=== PATIENT | female | born 1985 | race Caucasian/White ===

== ENCOUNTER 2016-12-05 14:41 | Emergency (ER) | payer OTHER ==
[~2016-12-05] VITALS: Ht 161.9 cm; Wt 145.1 kg
[~2016-12-05 14:41] MED LIST: AC500T PO; ANXIETY MED; BUPR150T9 PO; CEFU250T PO; CIPR500T4 PO; HC A30CR RC; HYDR115S2 PO; LABE300T PO; LORA0.5T PO; MECL25TA56 PO; PEDI1TAB35 PO
--- OUTSIDE RECORDS SUMMARY | 2016-12-05 14:48 | XMS REPORT | Continuity of Care Document ---
Author Author Formerly [facility] Address Unknown Phone Unavailable Allergies Active Description Code Type Severity Reaction Onset Reported/Identified Relationship to Patient Clinical Status Yes Diflucan Drug Allergy 12/05/2011 Yes Diflucan Drug Allergy N/A N/A 12/05/2011 Yes fluconazole [id number] Drug Allergy Unknown HIVES 12/14/2015 Medications Problems Date Dx Coded Attending Type Code Diagnosis Diagnosed By 11/02/2011 ZOË LIGHT DO 296.32 MO DEPRESSIVE RECURRENT MODERATE 11/02/2011 ZOË LIGHT DO 309.81 AN PTSD 11/02/2011 ZOË LIGHT DO 296.32 MO DEPRESSIVE RECURRENT MODERATE 11/02/2011 ZOË LIGHT DO 309.81 AN PTSD 11/02/2011 BEN CAROLINA APRNIDI A 296.32 MO DEPRESSIVE RECURRENT MODERATE 11/02/2011 CAITY LOVETT GRACIELA A 309.81 AN PTSD 11/02/2011 CHETAN FREEMAN APRNNDA S 296.32 MO DEPRESSIVE RECURRENT MODERATE 11/02/2011 PETE LOVETT THELMA S 309.81 AN PTSD 11/02/2011 CHETAN FREEMAN APRNNDA S 296.32 MO DEPRESSIVE RECURRENT MODERATE 11/02/2011 PETE LOVETT THELMA S 309.81 AN PTSD 11/02/2011 CAITY LOVETT GRACIELA A 296.32 MO DEPRESSIVE RECURRENT MODERATE 11/02/2011 CAITY LOVETT GRACIELA A 309.81 AN PTSD 11/02/2011 WHITE STANLEY SANCHEZ 296.32 MO DEPRESSIVE RECURRENT MODERATE 11/02/2011 STANLEY BIRD DDS 309.81 AN PTSD 11/02/2011 BRIAN GOMEZ MD 296.32 MO DEPRESSIVE RECURRENT MODERATE 11/02/2011 BRIAN GOMEZ MD 309.81 AN PTSD 11/02/2011 ERLINDA ALTAMIRANO PHD 296.32 MO DEPRESSIVE RECURRENT MODERATE 11/02/2011 ERLINDA ALTAMIRANO PHD 309.81 AN PTSD 11/02/2011 DK HOFF APRN 296.32 MO DEPRESSIVE RECURRENT MODERATE 11/02/2011 DK HOFF APRN 309.81 AN PTSD 11/02/2011 ERLINDA ALTAMIRANO PHD 296.32 MO DEPRESSIVE RECURRENT MODERATE 11/02/2011 ERLINDA ALTAMIRANO PHD 309.81 AN PTSD 11/02/2011 THELMA FREEMAN APRN S 296.32 MO DEPRESSIVE RECURRENT MODERATE 11/02/2011 ZEFERINO FREEMAN APRNA S 309.81 AN PTSD 12/05/2011 ZOË LIGHT DO K 111.0 PITYRIASIS VERSICOLOR 12/05/2011 MARIA DEL ROSARIO LIGHT DOA K 111.0 PITYRIASIS VERSICOLOR 12/05/2011 GRACIELA CAROLINA APRN A 111.0 PITYRIASIS VERSICOLOR 12/05/2011 ZEFERINO FREEMAN APRNA S 111.0 PITYRIASIS VERSICOLOR 12/05/2011 ZEFERINO FREEMAN APRNA S 111.0 PITYRIASIS VERSICOLOR 12/05/2011 GRACIELA CAROLINA APRN A 111.0 PITYRIASIS VERSICOLOR 12/05/2011 PELON HERNANDEZS, STANLEY Lopez 111.0 PITYRIASIS VERSICOLOR 12/05/2011 PATRICIA JACOBSON, BRIAN 111.0 PITYRIASIS VERSICOLOR 12/05/2011 ADARSH PHD, ERLINDA Jackson 111.0 PITYRIASIS VERSICOLOR 12/05/2011 DK HOFF APRN 111.0 PITYRIASIS VERSICOLOR 12/05/2011 ADARSH MASCORRO, ERLINDA Jackson 111.0 PITYRIASIS VERSICOLOR 12/05/2011 THELMA FREEMAN APRN S 111.0 PITYRIASIS VERSICOLOR 01/05/2012 MARIA DEL ROSARIO LIGHT DOA K 380.4 IMPACTED CERUMEN 01/05/2012 MARIA DEL ROSARIO LIGHT DOA K 380.4 IMPACTED CERUMEN 01/05/2012 GRACIELA CAROLINA APRN A 380.4 IMPACTED CERUMEN 01/05/2012 ZEFERINO FREEMAN APRNA S 380.4 IMPACTED CERUMEN 01/05/2012 THELMA FREEMAN APRN S 380.4 IMPACTED CERUMEN 01/05/2012 GRACIELA CAROLINA APRN A 380.4 IMPACTED CERUMEN 01/05/2012 STANLEY BIRD DDS 380.4 IMPACTED CERUMEN 01/05/2012 BRIAN GOMEZ MD 380.4 IMPACTED CERUMEN 01/05/2012 ERLINDA ALTAMIRANO PHD 380.4 IMPACTED CERUMEN 01/05/2012 DK HOFF APRN 380.4 IMPACTED CERUMEN 01/05/2012 ERLINDA ALTAMIRANO PHD 380.4 IMPACTED CERUMEN 01/05/2012 PETE LOVETT, THELMA S 380.4 IMPACTED CERUMEN 01/20/2012 Ot 300.00 01/20/2012 Ot 368.9 02/08/2012 LIGHT DO, ZOË K 381.10 OTITIS MEDIA CHRONIC SEROUS 02/08/2012 LIGHT DO ZOË K 729.5 PAIN IN LIMB 02/08/2012 LIGHT DO, ZOË K 381.10 OTITIS MEDIA CHRONIC SEROUS 02/08/2012 LIGHT DO, ZOË K 729.5 PAIN IN LIMB 02/08/2012 CAITY LOVETT GRACIELA A 381.10 OTITIS MEDIA CHRONIC SEROUS 02/08/2012 CAITY LOVETT GRACIELA A 729.5 PAIN IN LIMB 02/08/2012 PETE LOVETT, THELMA S 381.10 OTITIS MEDIA CHRONIC SEROUS 02/08/2012 PETE LOVETT THELMA S 729.5 PAIN IN LIMB 02/08/2012 PETE LOVETT THELMA S 381.10 OTITIS MEDIA CHRONIC SEROUS 02/08/2012 PETE LOVETT THELMA S 729.5 PAIN IN LIMB 02/08/2012 CAITY LOVETT GRACIELA A 381.10 OTITIS MEDIA CHRONIC SEROUS 02/08/2012 CAITYBc LOVETT GRACIELA A 729.5 PAIN IN LIMB 02/08/2012 STANLEY BIRD DDS 381.10 OTITIS MEDIA CHRONIC SEROUS 02/08/2012 STANLEY BIRD DDS 729.5 PAIN IN LIMB 02/08/2012 BRIAN GOMEZ MD 381.10 OTITIS MEDIA CHRONIC SEROUS 02/08/2012 BRIAN GOMEZ MD 729.5 PAIN IN LIMB 02/08/2012 ERLINDA ALTAMIRANO PHD 381.10 OTITIS MEDIA CHRONIC SEROUS 02/08/2012 ERLINDA ALTAMIRANO PHD 729.5 PAIN IN LIMB 02/08/2012 DK HOFF APRN 381.10 OTITIS MEDIA CHRONIC SEROUS 02/08/2012 DK HOFF APRN 729.5 PAIN IN LIMB 02/08/2012 ADARSH MASCORRO, ERLINDA Jackson 381.10 OTITIS MEDIA CHRONIC SEROUS 02/08/2012 ADARSH MASCORRO, ERLINDA Jackson 729.5 PAIN IN LIMB 02/08/2012 CHETAN FREEMAN APRNNDA S 381.10 OTITIS MEDIA CHRONIC SEROUS 02/08/2012 CHETAN FREEMAN APRNNDA S 729.5 PAIN IN LIMB 04/24/2012 MARIA DEL ROSARIO LIGHT DOA K 723.1 CERVICALGIA 04/24/2012 LIGHT DO ZOË K 723.1 CERVICALGIA 04/24/2012 BEN CAROLINA APRNIDI A 723.1 CERVICALGIA 04/24/2012 CHETAN FREEMAN APRNNDA S 723.1 CERVICALGIA 04/24/2012 CHETAN FREEMAN APRNNDA S 723.1 CERVICALGIA 04/24/2012 GRACIELA CAROLINA APRN A 723.1 CERVICALGIA 04/24/2012 PELON SANCHEZ, STANLEY Lopez 723.1 CERVICALGIA 04/24/2012 BRIAN GOMEZ MD 723.1 CERVICALGIA 04/24/2012 ADARSH MASCORRO, ERLINDA Jackson 723.1 CERVICALGIA 04/24/2012 DK HOFF APRN 723.1 CERVICALGIA 04/24/2012 ADARSH MASCORRO, ERLINDA Jackson 723.1 CERVICALGIA 04/24/2012 CHETAN FREEMAN APRNNDA S 723.1 CERVICALGIA 10/01/2012 MARIA DEL ROSARIO LIGHT DOA K 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 MASTOPATHY 10/01/2012 KULDEEP CHINCHILLA ZOË K V76.12 MAMMOGRAM SCREENING 10/01/2012 LIGHT DO ZOË K 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 MASTOPATHY 10/01/2012 LIGHT DO ZOË K V76.12 MAMMOGRAM SCREENING 10/01/2012 BEN CAROL[place] APRNIDI A 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 MASTOPATHY 10/01/2012 CAITY LOVETT GRACIELA A V76.12 MAMMOGRAM SCREENING 10/01/2012 CHETAN FREEMAN APRNNDA S 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 MASTOPATHY 10/01/2012 CHETAN FREEMAN APRNNDA S V76.12 MAMMOGRAM SCREENING 10/01/2012 CHETAN FREEMAN APRNNDA S 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 MASTOPATHY 10/01/2012 PETE LOVETT, THELMA S V76.12 MAMMOGRAM SCREENING 10/01/2012 GRACIELA CAROLINA APRN A 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 MASTOPATHY 10/01/2012 BEN CAROLINA APRNIDI A V76.12 MAMMOGRAM SCREENING 10/01/2012 PELON DDS, STANLEY J 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 MASTOPATHY 10/01/2012 WHITE DDS, STANLEY J V76.12 MAMMOGRAM SCREENING 10/01/2012 PATRICIA JACOBSON, BRIAN 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 MASTOPATHY 10/01/2012 PATRICIA JACOBSON, BRIAN V76.12 MAMMOGRAM SCREENING 10/01/2012 ADARSH PHD, ERLINDA Jackson 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 MASTOPATHY 10/01/2012 ADARSH MASCORRO, ERLINDA A V76.12 MAMMOGRAM SCREENING 10/01/2012 DK HOFF APRN 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 MASTOPATHY 10/01/2012 DK HOFF APRN V76.12 MAMMOGRAM SCREENING 10/01/2012 ADARSH PHD, ERLINDA A 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 MASTOPATHY 10/01/2012 ADARSH PHD, ERLINDA A V76.12 MAMMOGRAM SCREENING 10/01/2012 PETE LOVETT THELMA S 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 MASTOPATHY 10/01/2012 PETE LOVETT THELMA S V76.12 MAMMOGRAM SCREENING 10/12/2012 ZOË LIGHT DO 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 10/12/2012 GRACIELA CAROLINA APRN A 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 10/12/2012 PETE LOVETT THELMA S 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 10/12/2012 PETE LOVETT THELMA S 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 10/12/2012 GRACIELA CAROLINA APRN A 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 10/12/2012 PELON SANCHEZ, STANLEY J 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 10/12/2012 BRIAN GOMEZ MD 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 10/12/2012 BOEERLINDA SOLANO PHD 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 10/12/2012 DK HOFF APRN 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 10/12/2012 ERLINDA ALTAMIRANO PHD 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 10/12/2012 PETE LOVETT THELMA S 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 07/31/2013 LIANE JACOBSON, MACY Servin Ot 644.03 08/08/2013 LIANE JACOBSON, MACY Servin Ot 642.53 09/12/2013 CAITY LOVETT GARCIELA A 112.3 CANDIDIASIS OF SKIN AND NAILS 09/12/2013 CAITY LOVETT GRACIELA A 461.9 SINUSITIS ACUTE 09/12/2013 PETE LOVETT THELMA S 112.3 CANDIDIASIS OF SKIN AND NAILS 09/12/2013 PETE LOVETT TEHLMA S 461.9 SINUSITIS ACUTE 09/12/2013 CHETAN FREEMAN APRNNDA S 112.3 CANDIDIASIS OF SKIN AND NAILS 09/12/2013 PETE LOVETT THELMA S 461.9 SINUSITIS ACUTE 09/12/2013 CAITY LOVETT GRACIELA A 112.3 CANDIDIASIS OF SKIN AND NAILS 09/12/2013 CAITY LOVETT GRACIELA A 461.9 SINUSITIS ACUTE 09/12/2013 WHITE DDS, STANLEY J 112.3 CANDIDIASIS OF SKIN AND NAILS 09/12/2013 WHITE DDS, STANLEY J 461.9 SINUSITIS ACUTE 09/12/2013 BRIAN GOMEZ MD 112.3 CANDIDIASIS OF SKIN AND NAILS 09/12/2013 BRIAN GOMEZ MD 461.9 SINUSITIS ACUTE 09/12/2013 ERLINDA ALTAMIRANO PHD 112.3 CANDIDIASIS OF SKIN AND NAILS 09/12/2013 ERLINDA ALTAMIRANO PHD 461.9 SINUSITIS ACUTE 09/12/2013 DK HOFF APRN 112.3 CANDIDIASIS OF SKIN AND NAILS 09/12/2013 DK HOFF APRN 461.9 SINUSITIS ACUTE 09/12/2013 ERLINDA ALTAMIRANO PHD 112.3 CANDIDIASIS OF SKIN AND NAILS 09/12/2013 BOEKHOUT PHD, ERLINDA A 461.9 SINUSITIS ACUTE 09/12/2013 PETE LOVETT, THELMA S 112.3 CANDIDIASIS OF SKIN AND NAILS 09/12/2013 PETE MORAN, THELMA S 461.9 SINUSITIS ACUTE 09/19/2013 CAITY TRAUMA THERAPIST, GRACIELA A V65.49 OTHER SPECIFIED COUNSELING 09/19/2013 PETE TRAUMA THERAPIST, THELMA S V65.49 OTHER SPECIFIED COUNSELING 09/19/2013 PETE MORAN, THELMA S V65.49 OTHER SPECIFIED COUNSELING 09/19/2013 CAITY TRAUMA THERAPIST, GRACIELA A V65.49 OTHER SPECIFIED COUNSELING 09/19/2013 STANLEY BIRD DDS V65.49 OTHER SPECIFIED COUNSELING 09/19/2013 BRIAN GOMEZ MD V65.49 OTHER SPECIFIED COUNSELING 09/19/2013 ADARSH MASCORRO, ERLINDA Jackson V65.49 OTHER SPECIFIED COUNSELING 09/19/2013 DK HOFF APRN V65.49 OTHER SPECIFIED COUNSELING 09/19/2013 ADARSH MASCORRO, ERLINDA Jackson V65.49 OTHER SPECIFIED COUNSELING 09/19/2013 PETE MORAN, THELMA S V65.49 OTHER SPECIFIED COUNSELING 10/14/2013 PETE MORAN, THELMA S 401.1 HYPERTENSION, BENIGN ESSENTIAL 10/14/2013 PETE MORAN, THELMA S 401.1 HYPERTENSION, BENIGN ESSENTIAL 10/14/2013 CAITY LOVETT, GRACIELA A 401.1 HYPERTENSION, BENIGN ESSENTIAL 10/14/2013 STANLEY BIRD DDS 401.1 HYPERTENSION, BENIGN ESSENTIAL 10/14/2013 BRIAN GOMEZ MD 401.1 HYPERTENSION, BENIGN ESSENTIAL 10/14/2013 ADARSH MASCORRO, ERLINDA A 401.1 HYPERTENSION, BENIGN ESSENTIAL 10/14/2013 DK HOFF APRN 401.1 HYPERTENSION, BENIGN ESSENTIAL 10/14/2013 ERLINDA ALTAMIRANO PHD A 401.1 HYPERTENSION, BENIGN ESSENTIAL 10/14/2013 PETE TRAUMA THERAPIST, THELMA S 401.1 HYPERTENSION, BENIGN ESSENTIAL 01/02/2014 CAITY TRAUMA THERAPIST, GRACIELA A V76.10 BREAST CANCER SCREENING 01/02/2014 STANLEY BIRD DDS V76.10 BREAST CANCER SCREENING 01/02/2014 BRIAN GOMEZ MD V76.10 BREAST CANCER SCREENING 01/02/2014 ERLINDA ALTAMIRANO PHD V76.10 BREAST CANCER SCREENING 01/02/2014 DK HOFF APRN V76.10 BREAST CANCER SCREENING 01/02/2014 ERLINDA ALTAMIRANO PHD V76.10 BREAST CANCER SCREENING 01/02/2014 THELMA FREEMAN APRN V76.10 BREAST CANCER SCREENING 02/17/2014 HUNTER JACOBSON, AIDA A Ot 300.00 02/17/2014 HUNTER JACOBSON, AIDA A Ot 780.4 09/18/2014 PATRICIA JACOBSON, BRIAN 719.46 PAIN IN JOINT INVOLVING LOWER LEG 09/18/2014 ADARSH MASCORRO, ERLINDA Jackson 719.46 PAIN IN JOINT INVOLVING LOWER LEG 09/18/2014 DK HOFF APRN 719.46 PAIN IN JOINT INVOLVING LOWER LEG 09/18/2014 ERLINDA ALTAMIRANO PHD 719.46 PAIN IN JOINT INVOLVING LOWER LEG 09/18/2014 THELMA FREEMAN APRN 719.46 PAIN IN JOINT INVOLVING LOWER LEG 10/21/2014 ERLINDA ALTAMIRANO PHD 300.01 AN PANIC DIS W/O AGORA 10/21/2014 DK HOFF APRN 300.01 AN PANIC DIS W/O AGORA 10/21/2014 ERLINDA ALTAMIRANO PHD 300.01 AN PANIC DIS W/O AGORA 10/21/2014 THELMA FREEMAN APRN 300.01 AN PANIC DIS W/O AGORA 10/23/2014 DK HOFF APRN 733.92 CHONDROMALACIA 10/23/2014 ERLINDA ALTAMIRANO PHD 733.92 CHONDROMALACIA 10/23/2014 THELMA FREEMAN APRN 733.92 CHONDROMALACIA 10/27/2014 Ot 610.1 11/13/2014 ERLINDA ALTAMIRANO PHD 599.0 URINARY TRACT INFECTION 11/13/2014 THELMA FREEMAN APRN 599.0 URINARY TRACT INFECTION 11/22/2014 TRENT HERNANDEZ Ot 300.00 11/22/2014 TRENT HERNANDEZ Ot 401.9 11/22/2014 TRENT HERNANDEZ Ot V58.69 12/26/2014 KAUSHIK IRENE MD Ot 355.8 12/26/2014 MARIA VICTORIA JACOBSON, KAUSHIK Carlos Ot 729.5 01/09/2015 Ot 610.1 06/22/2015 Ot 610.1 06/22/2015 DK HOFFP Ot 719.06 06/22/2015 DK HOFF CAPTAIN ROOM SERVICE Ot 726.69 06/22/2015 DK HOFFP Ot 733.20 06/22/2015 DK HOFFP Ot 733.92 06/22/2015 WILMER QUINTANA DO Ot 461.9 06/22/2015 WILMER QUINTANA DO Ot 462 06/22/2015 WILMER QUINTANA DO Ot 464.00 06/22/2015 Ot 610.1 06/22/2015 DK HOFF Ot 719.06 06/22/2015 DK HOFF Ot 726.69 06/22/2015 DK HOFFP Ot 733.20 06/22/2015 DK HOFFP Ot 733.92 06/24/2015 JOSE JUAN CHAN MD Ot 528.3 06/24/2015 JOSE JUAN CHAN MD Ot 786.05 09/23/2015 [facility] , WOODY K Ot E66.9 09/23/2015 [facility] , WOODY K Ot S80.12XA 09/23/2015 [facility], WOODY K Ot W22.09XA 09/23/2015 [facility] , WOODY K Ot Y99.8 09/27/2015 Ot 610.1 09/27/2015 DK HOFFP Ot 719.06 09/27/2015 DK HOFFP Ot 726.69 09/27/2015 DK HOFFP Ot 733.20 09/27/2015 DK HOFF CAPTAIN ROOM SERVICE Ot 733.92 12/14/2015 WILMER QUINTANA DO Ot F41.9 ANXIETY DISORDER, UNSPECIFIED 05/31/2016 DK HOFFP Ot M17.11 UNILATERAL PRIMARY OSTEOARTHRITIS, RIGHT 05/31/2016 DK HOFFP Ot 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 05/31/2016 DK HOFF Ot M17.11 UNILATERAL PRIMARY OSTEOARTHRITIS, RIGHT 05/31/2016 HOFFDK Dickinson CAPTAIN ROOM SERVICE Ot 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 06/01/2016 DK HOFF Ot M17.11 UNILATERAL PRIMARY OSTEOARTHRITIS, RIGHT 06/01/2016 DK HOFF CAPTAIN ROOM SERVICE Ot 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 Visit Date/Time Discharge Status Pt. Type Provider Facility Loc./Unit Complaint [id number] 11/17/2014 09:57:00 11/17/2014 23: 59:59 CLS Outpatient THELMA FREEMAN APRN [id number] 11/14/2014 08:56:00 11/14/2014 23: 59:59 CLS Outpatient ERLINDA ALTAMIRANO PHD [id number] 10/23/2014 15:06:00 10/23/2014 23: 59:59 CLS Outpatient DK HOFF APRN [id number] 10/21/2014 07:58:00 10/21/2014 23: 59:59 CLS Outpatient ERLINDA ALTAMIRANO PHD [id number] 09/18/2014 16:23:00 09/18/2014 23: 59:59 CLS Outpatient BRIAN GOMEZ MD [id number] 01/24/2014 08:10:00 01/24/2014 23: 59:59 CLS Outpatient STANLEY BIRD DDS [id number] 01/02/2014 18:08:00 01/02/2014 23: 59:59 CLS Outpatient GRACIELA CAROLINA APRN [id number] 12/10/2013 13:23:00 12/10/2013 23: 59:59 CLS Outpatient THELMA FREEMAN APRN [id number] 10/14/2013 14:37:00 10/14/2013 23: 59:59 CLS Outpatient THELMA FREEMAN APRN [id number] 09/19/2013 09:27:00 09/19/2013 23: 59:59 CLS Outpatient GRACIELA CAROLINA APRN [id number] 10/12/2012 10:20:00 10/12/2012 23: 59:59 CLS Outpatient ZOË LIGHT DO [id number] 10/01/2012 09:52:00 10/01/2012 23: 59:59 CLS Outpatient ZOË LIGHT DO
--- NOTE | 2016-12-05 15:01 | ED General ---
General Stated Complaint: PALPITATIONS LEGS SWELLING Source of Information: Patient Exam Limitations: No Limitations History of Present Illness Time Seen by Provider: 14:58 Initial Comments To ER with palpitations and leg swelling. This is been going on for the past week. She has a history of intermittent bilateral leg swelling secondary to a crush injury in 2010. She also has a history of hypertension for which she takes 75 mg of labetalol 3 times a day. She also has a history of anxiety. She feels chest tightness and palpitations that are worse when she feels anxious. She does feel quite anxious now and states "I know I'm a hypochondriac and that may be all this is, just anxiety, but I want to make sure its nothing more". Timing/Duration: 1-2 Days Severity: Moderate Associated Systoms: Chest PainNo Cough, No Diaphoresis, No Fever/Chills, No Headaches, No Loss of Appetite, No Malaise, No Nausea/Vomiting, No Rash, Shortness of AirNo Syncope Allergies and Home Medications Allergies Coded Allergies: fluconazole (Verified Allergy, Unknown, HIVES, 12/14/15) Home Medications Hydrochlorothiazide 25 Mg Tablet #10 25 MG PO DAILY Prescribed by: DWAIN DIAZ on 12/05/16 1612 Labetalol Hcl 300 Mg Tablet 150 MG PO TID (Reported) Lorazepam 0.5 Mg Tablet 1 MG PO PRN (Reported) Constitutional: see HPI EENTM: see HPI Respiratory: no symptoms reportedNo cough, No dyspnea on exertion, No short of breath Cardiovascular: see HPINo chest pain, edemaNo Hx of Intervention, palpitationsNo syncope, No vascular heart diseas Genitourinary: no symptoms reported Musculoskeletal: no symptoms reported Skin: no symptoms reported Psychiatric/Neurological: No Symptoms Reported Hematologic/Lymphatic: No Symptoms Reported Immunological/Allergic: no symptoms reported Past Xvdxhbt-Hztvns-Vdjppn Hx Patient Social History Recent Foreign Travel: No Contact w/Someone Who Travel: No Immunizations Up To Date Tetanus Booster (TDap): Less than 5yrs Seasonal Allergies Seasonal Allergies: No Surgeries HX Surgeries: Yes Surgeries: Gallbladder Respiratory Hx Respiratory Disorders: No Cardiovascular Hx Cardiac Disorders: Yes (HX PRE-ECLAMPSIA) Cardiac Disorders: Hypertension Neurological Hx Neurological Disorders: No Reproductive System Hx Reproductive Disorders: No Female Reproductive Disorders: Denies Genitourinary Hx Genitourinary Disorders: Yes (UTI X2) Gastrointestinal Hx Gastrointestinal Disorders: Yes (GALL BLADDER REMOVED 2009, IBS) Gastrointestinal Disorders: Hemorrhoids, Gall Bladder Disease Musculoskeletal Hx Musculoskeletal Disorders: Yes (LEFT HIP DYSPLASIA 2011, CRUSH INJURY TO BOTH LEGS FROM AUGUSTIN DAVID 2010) Endocrine Hx Endocrine Disorders: Yes (GESTATIONAL DM WITH FIRST ) HEENT HX ENT Disorders: Yes Loss of Vision: Right Hearing Impairment: Denies Cancer Hx Cancer: No Psychosocial Hx Psychiatric Problems: Yes (PTSD FROM [facility]LYNNJO[facility] HARPER) Behavioral Health Disorders: Anxiety, PTSD, Depression Integumentary HX Skin/Integumentary Disorder: No Blood Transfusions Hx Blood Disorders: No Family Medical History Significant Family History: No Pertinent Family Hx Physical Exam Vital Signs Vital Sign - Last 12Hours 12/05/16 14:53 Temp 98.1 Pulse 118 Resp 26 B/P 175/106 Pulse Ox 96 O2 Delivery Room Air Capillary Refill : General Appearance: No Apparent Distress WD/WN Anxious Obese Eyes: Bilateral Eye EOMI, Bilateral Eye Normal Inspection, Bilateral Eye PERRL HEENT: PERRL/EOMI TMs Normal Neck: Full Range of Motion Normal Inspection Respiratory: No Accessory Muscle Use No Respiratory Distress Cardiovascular: Normal Peripheral Pulses Irregularly Irregular Other ( bilateral lower extremity edema, worse on the left) Gastrointestinal: Non Tender Soft Extremity: Normal Capillary Refill Normal Inspection Other (1+ on the left, trace on the right) Neurologic/Psychiatric: Alert Oriented x3 No Motor/Sensory Deficits Skin: Normal Color Warm/Dry Progress/Results/Core Measures Results/Orders Lab Results Laboratory Tests Test 12/05/16 14:51 12/05/16 15:03 Range/Units Ur Tricyclic Antidepressants Screen NEGATIVE NEGATIVE Urine Amphetamines Screen NEGATIVE NEGATIVE Urine Bacteria TRACE /HPF Urine Barbiturates Screen NEGATIVE NEGATIVE Urine Benzodiazepines Screen NEGATIVE NEGATIVE Urine Bilirubin NEGATIVE NEGATIVE Urine Cannabinoids Screen NEGATIVE NEGATIVE Urine Casts NONE /LPF Urine Clarity CLEAR Urine Cocaine Screen NEGATIVE NEGATIVE Urine Color YELLOW Urine Crystals NONE /LPF Urine Culture Indicated NO Urine Glucose (UA) NEGATIVE NEGATIVE Urine Ketones NEGATIVE NEGATIVE Urine Leukocyte Esterase NEGATIVE NEGATIVE Urine Methadone Screen NEGATIVE NEGATIVE Urine Methamphetamines Screen NEGATIVE NEGATIVE Urine Mucus NEGATIVE /LPF Urine Nitrite NEGATIVE NEGATIVE Urine Opiates Screen NEGATIVE NEGATIVE Urine Oxycodone Screen NEGATIVE NEGATIVE Urine Phencyclidine Screen NEGATIVE NEGATIVE Urine Propoxyphene Screen NEGATIVE NEGATIVE Urine Protein NEGATIVE NEGATIVE Urine RBC NONE /HPF Urine RBC (Auto) NEGATIVE NEGATIVE Urine Specific [place] 1.020 1.016-1.022 Urine Squamous Epithelial Cells 5-10 /HPF Urine Urobilinogen NORMAL NORMAL MG/DL Urine WBC NONE /HPF Urine pH 6 5-9 Alanine Aminotransferase (ALT/SGPT) 17 0-55 U/L Albumin 4.1 3.2-4.5 G/DL Alkaline Phosphatase 93 40-136 U/L Anion Gap 12 5-14 MMOL/L Aspartate Amino Transf (AST/SGOT) 12 5-34 U/L B-Type Natriuretic Peptide 10.5 <100.0 PG/ML BUN/Creatinine Ratio 20 Basophils # (Auto) 0.1 0.0-0.1 10^3/uL Basophils (%) (Auto) 1 0-10 % Blood Urea Nitrogen 15 7-18 MG/DL Calcium Level 9.4 8.5-10.1 MG/DL Carbon Dioxide Level 20 L 21-32 MMOL/L Chloride Level 106 98-107 MMOL/L Creatinine 0.76 0.60-1.30 MG/DL D-Dimer 0.39 0.00-0.49 UG/ML Eosinophils # (Auto) 0.3 0.0-0.3 10^3/uL Eosinophils (%) (Auto) 3 0-10 % Estimat Glomerular Filtration Rate > 60 Free Thyroxine 1.12 0.70-1.48 NG/DL Glucose Level 125 H 70-105 MG/DL Hematocrit 41 35-52 % Hemoglobin 13.8 11.5-16.0 G/DL Lymphocytes # (Auto) 2.9 1.0-4.0 X 10^3 Lymphocytes (%) (Auto) 29 12-44 % Mean Corpuscular Hemoglobin 28 25-34 PG Mean Corpuscular Hemoglobin Concent 33 32-36 G/DL Mean Corpuscular Volume 83 80-99 FL Mean Platelet Volume 9.9 7.4-10.4 FL Monocytes # (Auto) 0.7 0.0-1.0 X 10^3 Monocytes (%) (Auto) 7 0-12 % Neutrophils # (Auto) 6.0 1.8-7.8 X 10^3 Neutrophils (%) (Auto) 60 42-75 % Platelet Count 311 130-400 10^3/uL Potassium Level 4.0 3.6-5.0 MMOL/L Red Blood Count 4.97 4.35-5.85 10^6/uL Red Cell Distribution Width 13.8 10.0-14.5 % Sodium Level 138 135-145 MMOL/L Thyroid Stimulating Hormone (TSH) 1.82 0.35-4.94 UIU/ML Total Bilirubin 0.3 0.1-1.0 MG/DL Total Protein 6.8 6.4-8.2 G/DL Troponin I < 0.30 <0.30 NG/ML White Blood Count 10.1 4.3-11.0 10^3/uL My Orders Orders-DWAIN DIAZ APRN Thyroid Stimulating Hormone (12/05/16 14:44) Ekg Tracing (12/05/16 14:44) Ua Culture If Indicated (12/05/16 14:44) Drug Screen Stat (Urine) (12/05/16 14:44) Cbc With Automated Diff (12/05/16 14:44) Urine Bedside (12/05/16 14:44) Free T4 (Free Thyroxine) (12/05/16 14:44) BNP (12/05/16 14:44) Troponin I (12/05/16 14:44) Fibrin Degradation Products (12/05/16 14:57) Comprehensive Metabolic Panel (12/05/16 15:22) Vital Signs/I&O Vital Sign - Last 12Hours 12/05/16 12/05/16 14:53 16:30 Temp 98.1 98.1 Pulse 118 102 Resp 26 18 B/P 175/106 Pulse Ox 96 98 O2 Delivery Room Air Departure Communication Progress Notes 1602-states that she feels much better at this time. However she remains tachycardic at 118 sinus. Blood pressure 170/100. She states that she is scheduled to take her afternoon dose of 150 mg of labetalol at this time so she is doing that now. Impression Impression: Primary Impression: Anxiety Additional Impression: Hypertension Disposition: 01 HOME, SELF-CARE Condition: Improved Departure-Patient Inst. Decision time for Depature: 16:10 Referrals: [facility] (PCP/Family) Primary Care Physician Patient Instructions: NO INSTRUCTIONS GIVEN Add. Discharge Instructions: 1. Follow-up with your regular doctor this week 2. Return to ER for any worsening 3. Add new blood pressure medication Scripts Hydrochlorothiazide 25 Mg [id number] Mg PO DAILY #10 TAB Prov:DWAIN DIAZ APRN 12/05/16 DWAIN DIAZ APRN Dec 05, 2016 15:01
[2016-12-05 15:06] LABS: BILIRUBIN,URINE NEGATIVE (NEGATIVE); KETONES,URINE NEGATIVE (NEGATIVE); LEUKOCYTE ESTERASE ,URINE NEGATIVE (NEGATIVE); NITRITE,URINE NEGATIVE (NEGATIVE); PH,URINE 6 (5-9); PROTEIN,URINE NEGATIVE (NEGATIVE); UROBILINOGEN,URINE NORMAL (NORMAL)
[2016-12-05 15:16] LABS: BASOPHILS # (AUTO) 0.1 10^3/uL (0.0-0.1); BASOPHILS % (AUTO) 1 % (0-10); EOSINOPHILS # (AUTO) 0.3 10^3/uL (0.0-0.3); EOSINOPHILS % (AUTO) 3 % (0-10); LYMPHOCYTES # (AUTO) 2.9 X 10^3 (1.0-4.0); LYMPHOCYTES % (AUTO) 29 % (12-44); MEAN CORPUSCULAR HEMOGLOBIN 28 PG (25-34); MEAN CORPUSCULAR HGB CONC 33 G/DL (32-36); MEAN CORPUSCULAR VOLUME 83 FL (80-99); MEAN PLATELET VOLUME 9.9 FL (7.4-10.4); MONOCYTES # (AUTO) 0.7 X 10^3 (0.0-1.0); MONOCYTES % (AUTO) 7 % (0-12); NEUTROPHILS % (AUTO) 60 % (42-75); PLATELET COUNT 311 10^3/uL (130-400); RED BLOOD COUNT 4.97 10^6/uL (4.35-5.85); RED CELL DISTRIBUTION WIDTH 13.8 % (10.0-14.5); WHITE BLOOD COUNT 10.1 10^3/uL (4.3-11.0)
[2016-12-05 16:01] LABS: ALANINE AMINOTRANSFERASE 17 U/L (0-55); ALBUMIN 4.1 G/DL (3.2-4.5); ANION GAP 12 MMOL/L (5-14); ASPARTATE AMINO TRANSFERASE 12 U/L (5-34); BILIRUBIN,TOTAL 0.3 MG/DL (0.1-1.0); BLOOD UREA NITROGEN 15 MG/DL (7-18); BUN/CREATININE RATIO 20; CALCIUM 9.4 MG/DL (8.5-10.1); CARBON DIOXIDE 20 MMOL/L (21-32); CHLORIDE 106 MMOL/L (98-107); CREATININE SERUM 0.76 MG/DL (0.60-1.30); GFR ESTIMATED > 60; GLUCOSE 125 MG/DL (70-105); SODIUM 138 MMOL/L (135-145); TOTAL PROTEIN 6.8 G/DL (6.4-8.2)
[2016-12-05 16:02] LABS: TROPONIN I < 0.30 NG/ML (<0.30)
[2016-12-05 16:10] LABS: THYROID STIMULATING HORMONE 1.82 UIU/ML (0.35-4.94)
[2016-12-05] MEDS ORDERED: HYDR25TA4 PO (16:12)
[2016-12-05 16:30] VITALS: BP 152/86
== END 2016-12-05 16:30 | disposition home or self-care (01) ==
LOC: EDUNIT# 14:41 → ER 14:43
DX: F41.9 Anxiety disorder, unspecified (principal); I10 Essential (primary) hypertension; Z79.899 Other long term (current) drug therapy
CPT/HCPCS: 36415; 80053; 80306; 81000; 83880; 84439; 84443; 84484; 84703; 85025; 85379; 93005

== ENCOUNTER 2016-12-11 13:32 | Emergency (ER) | payer OTHER ==
[~2016-12-11] VITALS: Ht 162.6 cm; Wt 113.4 kg
[~2016-12-11 13:32] MED LIST changes: +HYDR25TA4 PO
--- OUTSIDE RECORDS SUMMARY | 2016-12-11 13:38 | XMS REPORT | Continuity of Care Document ---
Author Author [facility] [place] [facility] Address Unknown Phone Unavailable Allergies Active Description Code Type Severity Reaction Onset Reported/Identified Relationship to Patient Clinical Status Yes Diflucan Drug Allergy 12/05/2011 Yes Diflucan Drug Allergy N/A N/A 12/05/2011 Yes fluconazole [id number] Drug Allergy Unknown HIVES 12/14/2015 Medications Problems [...] FREEMAN APRNNDA S V76.12 MAMMOGRAM SCREENING 10/01/2012 CHETNA FREEMAN APRNNDA S 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 MASTOPATHY [...] MACY Servin Ot 642.53 09/12/2013 CAITY LOVETT GRACIELA A 112.3 CANDIDIASIS OF SKIN AND NAILS 09/12/2013 CAITY LOVETT GRACIELA A 461.9 SINUSITIS ACUTE 09/12/2013 PETE LOVETT THELMA S 112.3 CANDIDIASIS OF SKIN AND NAILS 09/12/2013 PETE LOVETT THELMA S 461.9 SINUSITIS ACUTE 09/12/2013 CHETAN FREEMAN [...] THELMA S 461.9 SINUSITIS ACUTE 09/19/2013 CAITY CONCRETE LABORER, GRACIELA A V65.49 OTHER SPECIFIED COUNSELING 09/19/2013 PETE CONCRETE LABORER, THELMA S V65.49 OTHER SPECIFIED COUNSELING 09/19/2013 PETE MORAN, THELMA S V65.49 OTHER SPECIFIED COUNSELING 09/19/2013 CAITY CONCRETE LABORER, GRACIELA A V65.49 OTHER SPECIFIED COUNSELING 09/19/2013 [...] A 401.1 HYPERTENSION, BENIGN ESSENTIAL 10/14/2013 PETE CONCRETE LABORER, THELMA S 401.1 HYPERTENSION, BENIGN ESSENTIAL 01/02/2014 CAITY CONCRETE LABORER, GRACIELA A V76.10 BREAST CANCER SCREENING 01/02/2014 [...] DK HOFFP Ot 719.06 06/22/2015 DK HOFF DEVICE PROCESSING ENGINEER Ot 726.69 06/22/2015 DK HOFFP Ot 733.20 [...] JOSE JUAN CHAN MD Ot 786.05 09/23/2015 [place] , WOODY K Ot E66.9 09/23/2015 [place] , WOODY K Ot S80.12XA 09/23/2015 [facility], [place] K Ot W22.09XA 09/23/2015 [place] , WOODY K Ot Y99.8 09/27/2015 Ot 610.1 09/27/2015 DK HOFFP Ot 719.06 09/27/2015 DK HOFFP Ot 726.69 09/27/2015 DK HOFFP Ot 733.20 09/27/2015 DK HOFF DEVICE PROCESSING ENGINEER Ot 733.92 12/14/2015 WILMER QUINTANA DO Ot F41.9 ANXIETY DISORDER, UNSPECIFIED 05/31/2016 DK HOFFP Ot M17.11 UNILATERAL PRIMARY OSTEOARTHRITIS, RIGHT 05/31/2016 DK HOFFP Ot 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 05/31/2016 HOFF, DK D DEVICE PROCESSING ENGINEER Ot M17.11 UNILATERAL PRIMARY OSTEOARTHRITIS, RIGHT 05/31/2016 DK HOFF David DEVICE PROCESSING ENGINEER Ot 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 06/01/2016 DK HOFF David DEVICE PROCESSING ENGINEER Ot M17.11 UNILATERAL PRIMARY OSTEOARTHRITIS, RIGHT 06/01/2016 DK HOFF David DEVICE PROCESSING ENGINEER Ot 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 06/20/2016 DK HOFF David DEVICE PROCESSING ENGINEER Ot M17.11 UNILATERAL PRIMARY OSTEOARTHRITIS, RIGHT 06/20/2016 DK HOFF David DEVICE PROCESSING ENGINEER Ot 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 12/05/2016 DWAIN DIAZ APRN Ot F41.9 ANXIETY DISORDER, UNSPECIFIED 12/05/2016 DWAIN DIAZ APRN Ot I10 ESSENTIAL (PRIMARY) HYPERTENSION 12/05/2016 DWAIN DIAZ APRN Ot R00.2 PALPITATIONS 12/05/2016 DWAIN DIAZ APRN Ot Z79.899 OTHER [facility] (CURRENT) DRUG THERAPY 12/07/2016 DWAIN DIAZ APRN Ot F41.9 ANXIETY DISORDER, UNSPECIFIED 12/07/2016 DWAIN DIAZ CONCRETE LABORER Ot I10 ESSENTIAL (PRIMARY) HYPERTENSION 12/07/2016 DWAIN DIAZ APRN Ot R00.2 PALPITATIONS 12/07/2016 DWAIN DIAZ APRN Ot Z79.899 OTHER [facility] (CURRENT) DRUG THERAPY Procedures Code Description [place] [address] XRAY FEET, TROY 60958 US BREAST ULTRASOUND, LEFT 10/01/2012 20492 MAMMOGRAM DX, LEFT 10/01/2012 86998 MAMMOGRAM, SCREENING 10/01/2012 Podiatry Jess Ham 10/12/2012 52478 XRAY KNEE RIGHT 3 VIEWS 09/18/2014 35684 PSYCH DIAGNOSTIC EVALUATION 10/21/2014 40268 UA W/ CULTURE IF INDICATED 11/13/2014 46578 PSYTX PT&/FAMILY 45 MINUTES 11/17/2014 Results Test Result Range Complete urinalysis with reflex to culture - 12/05/16 14:51 Urine color determination YELLOW NRG Urine clarity determination CLEAR NRG Urine pH measurement by test strip 6 5- 9 Specific gravity of urine by test strip 1.020 1.016-1.022 Urine protein assay by test strip, semi-quantitative NEGATIVE NEGATIVE Urine glucose detection by automated test strip NEGATIVE NEGATIVE Erythrocytes detection in urine sediment by light microscopy NEGATIVE NEGATIVE Urine ketones detection by automated test strip NEGATIVE NEGATIVE Urine nitrite detection by test strip NEGATIVE NEGATIVE Urine total bilirubin detection by test strip NEGATIVE NEGATIVE Urine urobilinogen measurement by automated test strip (mass/volume) NORMAL NORMAL Urine leukocyte esterase detection by dipstick NEGATIVE NEGATIVE Automated urine sediment erythrocyte count by microscopy (number/high power field) NONE NRG Automated urine sediment leukocyte count by microscopy (number/high power field ) NONE NRG Bacteria detection in urine sediment by light microscopy TRACE NRG Squamous epithelial cells detection in urine sediment by light microscopy 5-10 NRG Crystals detection in urine sediment by light microscopy NONE NRG Casts detection in urine sediment by light microscopy NONE NRG Mucus detection in urine sediment by light microscopy NEGATIVE NRG Complete urinalysis with reflex to culture NO NRG Urine drug screening test - 12/05/16 14:51 Urine phencyclidine detection by screening method NEGATIVE NEGATIVE Urine benzodiazepines detection by screening method NEGATIVE NEGATIVE Urine cocaine detection NEGATIVE NEGATIVE Urine amphetamines detection by screening method NEGATIVE NEGATIVE Urine methamphetamine detection by screening method NEGATIVE NEGATIVE Urine cannabinoids detection by screening method NEGATIVE NEGATIVE Urine opiates detection by screening method NEGATIVE NEGATIVE Urine barbiturates detection NEGATIVE NEGATIVE Screening urine tricyclic antidepressants detection NEGATIVE NEGATIVE Urine methadone detection by screening method NEGATIVE NEGATIVE Urine oxycodone detection NEGATIVE NEGATIVE Urine propoxyphene detection NEGATIVE NEGATIVE Complete blood count (CBC) with automated white blood cell (WBC) differential - 12/05/16 15:03 Blood leukocytes automated count (number/volume) 10.1 10*3/ uL 4.3-11.0 Blood erythrocytes automated count (number/volume) 4.97 10*6 /uL 4.35-5.85 Venous blood hemoglobin measurement (mass/volume) 13.8 g/dL 11.5-16.0 Blood hematocrit (volume fraction) 41 % 35-52 Automated erythrocyte mean corpuscular volume 83 [foz_us] 80-99 Automated erythrocyte mean corpuscular hemoglobin (mass per erythrocyte) 28 pg 25-34 Automated erythrocyte mean corpuscular hemoglobin concentration measurement ( mass/volume) 33 g/dL 32-36 Automated erythrocyte distribution width ratio 13.8 % 10.0-14.5 Automated blood platelet count (count/volume) 311 10*3/uL 130-400 Automated blood platelet mean volume measurement 9.9 [foz_us ] 7.4-10.4 Automated blood neutrophils/100 leukocytes 60 % 42-75 Automated blood lymphocytes/100 leukocytes 29 % 12-44 Blood monocytes/100 leukocytes 7 % 0-12 Automated blood eosinophils/100 leukocytes 3 % 0-10 Automated blood basophils/100 leukocytes 1 % 0-10 Blood neutrophils automated count (number/volume) 6.0 10*3 1.8-7.8 Blood lymphocytes automated count (number/volume) 2.9 10*3 1.0-4.0 Blood monocytes automated count (number/volume) 0.7 10*3 0.0-1.0 Automated eosinophil count 0.3 10*3/uL 0.0-0.3 Automated blood basophil count (count/volume) 0.1 10*3/uL 0.0-0.1 Fibrin D-dimer FEU measurement in platelet poor plasma (mass/volume) - 15:03 Fibrin D-dimer FEU measurement in platelet poor plasma (mass/volume) 0.39 ug/mL 0.00-0.49 Comprehensive metabolic panel - 12/05/16 15:03 Serum or plasma sodium measurement (moles/volume) 138 mmol/ L 135-145 Serum or plasma potassium measurement (moles/volume) 4.0 mmol/L 3.6-5.0 Serum or plasma chloride measurement (moles/volume) 106 mmol /L 98-107 Carbon dioxide 20 mmol/L 21-32 Serum or plasma anion gap determination (moles/volume) 12 mmol/L 5-14 Serum or plasma urea nitrogen measurement (mass/volume) 15 mg/dL 7-18 Serum or plasma creatinine measurement (mass/volume) 0.76 mg /dL 0.60-1.30 Serum or plasma urea nitrogen/creatinine mass ratio 20 NRG Serum or plasma creatinine measurement with calculation of estimated glomerular filtration rate > NRG Serum or plasma glucose measurement (mass/volume) 125 mg/dL 70-105 Serum or plasma calcium measurement (mass/volume) 9.4 mg/dL 8.5-10.1 Serum or plasma total bilirubin measurement (mass/volume) 0.3 mg/dL 0.1-1.0 Serum or plasma alkaline phosphatase measurement (enzymatic activity/volume) 93 U/L 40-136 Serum or plasma aspartate aminotransferase measurement (enzymatic activity/ volume) 12 U/L 5-34 Serum or plasma alanine aminotransferase measurement (enzymatic activity/volume ) 17 U/L 0-55 Serum or plasma protein measurement (mass/volume) 6.8 g/dL 6.4-8.2 Serum or plasma albumin measurement (mass/volume) 4.1 g/dL 3.2-4.5 Serum or plasma troponin i.cardiac measurement (mass/volume) - 12/05/16 15:03 Serum or plasma troponin i.cardiac measurement (mass/volume) < ng/mL <0.30 THYROID STIMULATING HORMONE - 12/05/16 15:03 THYROID STIMULATING HORMONE 1.82 u[iU]/mL 0.35-4.94 Serum or plasma thyroxine (T4) free measurement (mass/volume) - 12/05/16 15:03 Serum or plasma thyroxine (T4) free measurement (mass/volume) 1.12 ng/dL 0.70-1.48 Serum or plasma lithium measurement (moles/volume) - 12/05/16 15:03 BNP level 10.5 pg/mL <100.0 Encounters ACCT No. Visit Date/Time Discharge Status Pt. Type Provider Facility Loc./Unit Complaint [id number] 11/17/2014 09:57:00 11/17/2014 23: 59:59 CLS Outpatient THELMA FREEMAN APRN [id number] 11/14/2014 08:56:00 11/14/2014 23: 59:59 CLS Outpatient ERLINDA ALTAMIRANO PHD [id number] 10/23/2014 15:06:00 10/23/2014 23: 59:59 CLS Outpatient DK HOFF APRN [id number] 10/21/2014 07:58:00 10/21/2014 23: 59:59 CLS Outpatient ERLINDA ALTAMIRANO PHD [id number] 09/18/2014 16:23:00 09/18/2014 23: 59:59 CLS Outpatient BRIAN GOMEZ MD [id number] 01/24/2014 08:10:00 01/24/2014 23: 59:59 CLS Outpatient STANLEY BIRD DDS [id number] 01/02/2014 18:08:00 01/02/2014 23: 59:59 CLS Outpatient GRACIELA CAROLINA APRN [id number] 12/10/2013 13:23:00 12/10/2013 23: 59:59 CLS Outpatient THELMA FREEMAN APRN [id number] 10/14/2013 14:37:00 10/14/2013 23: 59:59 CLS Outpatient THELMA FREEMAN APRN [id number] 09/19/2013 09:27:00 09/19/2013 23: 59:59 CLS Outpatient CAITY RACHELL GRACIELA A [id number] 10/12/2012 10:20:00 10/12/2012 23: 59:59 CLS Outpatient ZOË LIGHT DO [id number] 10/01/2012 09:52:00 10/01/2012 23: 59:59 CLS Outpatient ZOË LIGHT DO
[2016-12-11] MEDS ORDERED: CLIN300C11 PO (14:28)
[2016-12-11] MEDS ORDERED: LIDOCAINE 1% INJ 20 ML (XYLOCAINE) VIAL INJ ONE (14:30)
[2016-12-11] MEDS ORDERED: cefTRIAXone 1 GM (ROCEPHIN) VIAL IM ONE (14:30)
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
[2016-12-11 14:55] VITALS: BP 170/90
== END 2016-12-11 14:48 | disposition home or self-care (01) ==
LOC: EDUNIT# 13:32 → ER 13:33
DX: K04.7 Periapical abscess without sinus (principal); I10 Essential (primary) hypertension; Z79.899 Other long term (current) drug therapy
CPT/HCPCS: 96372; 99282

== ENCOUNTER 2017-09-16 05:16 | Emergency (ER) | payer SELFPAY ==
[~2017-09-16] VITALS: Ht 162.6 cm; Wt 136.1 kg
[~2017-09-16 05:16] MED LIST changes: +CLIN300C11 PO
--- OUTSIDE RECORDS SUMMARY | 2017-09-16 05:24 | XMS REPORT ---
Author Author ONEIDA PINEDA Organization [employer] Address Unknown Phone Unavailable Care Team Providers Care Physical Therapist Name Role Phone ONEIDA PINEDA CP Unavailable Allergies, Adverse Reactions, Alerts Substance Reaction Event Type Diflucan Info Not Available Drug Allergy Problems Problem Type Condition Code Onset Dates Condition Status Assessment Anxiety 300.00 Active Assessment Anxiety F41.9 Active Problem Retinal hemorrhage H35.60 Active Problem Anxiety F41.9 Active Problem HTN (hypertension) I10 Active Problem Retinal hemorrhage, right H35.61 Jul 09, 2015 Active Assessment HTN (hypertension) I10 Active Problem PTSD (post-traumatic stress disorder) F43.10 Active Problem Anxiety 300.00 Active Medications Medication Code System Code Instructions Start Date End Date Status Dosage Labetalol HCl [facility] [address]-13 300 MG Orally 3 times a day February 18, 2015 1 Wellbutrin SR [facility] [address]-53 150 MG Nov 17, 2014 1 Tablet 2 times per day Ativan [facility] [address]-05 0.5 MG Orally 2 times a day February 18, 2015 1 tablet as needed Procedures Procedure Coding System Code Date Office Visit, Est Pt., Level 4 CPT-4 59982 Sep 10, 2015 Vital Signs Date/Time: Sep 10, 2015 Temperature 98.5 F Weight 280.5 lbs Height 64 in BMI 48.14 Index Blood Pressure Diastolic 100 mmHg Blood Pressure Systolic 160 mmHg Cardiac Monitoring Heart Rate 80 bpm Results No Known Results Summary Purpose [employer] Submission
--- OUTSIDE RECORDS SUMMARY | 2017-09-16 05:24 | XMS REPORT ---
Author Author ONEIDA PINEDA Organization [facility] Address [address] [place] [address] Care Team Providers Care Power Regulator Name Role Phone JENNI PINEDANETTE Unavailable PROBLEMS Type Condition ICD9-CM Code [id number] Code Onset Dates Condition Status SNOMED Code Problem Retinal hemorrhage, right H35.61 Jul, Active 63056549 Problem Seasonal allergic rhinitis, unspecified allergic rhinitis trigger J30.2 Active 891820234 Problem Morbid obesity due to excess calories E66.01 Active 061411862 Problem PTSD (post-traumatic stress disorder) F43.10 Active 57357057 Problem Retinal hemorrhage H35.60 Active 31387255 Problem Anxiety F41.9 Active 63452815 Problem HTN (hypertension) I10 Active 68461772 ALLERGIES No Known Allergies SOCIAL HISTORY No smoking Hx information available PLAN OF CARE VITAL SIGNS MEDICATIONS Medication Instructions Dosage Frequency Start Date End Date Duration Status Labetalol HCl 300 MG Orally 3 times a day MUST KEEP APPT 10/06 FOR REFILL 1/ 2 tablet 30 days Active RESULTS No Results PROCEDURES No Known procedures IMMUNIZATIONS No Known Immunizations
--- OUTSIDE RECORDS SUMMARY | 2017-09-16 05:24 | XMS REPORT ---
Author Author MORRO JOHNSON Organization [employer] Address Unknown Phone Unavailable Care Team Providers Care Health Consultant Name Role Phone MORRO JOHNSON CP Unavailable Allergies, Adverse Reactions, Alerts Substance Reaction Event Type Diflucan Info Not Available Drug Allergy Problems Problem Type Condition Code Onset Dates Condition Status Assessment Tonsillolith J35.8 Active Problem Retinal hemorrhage H35.60 Active Problem Anxiety F41.9 Active Problem HTN (hypertension) I10 Active Assessment Sore throat J02.9 Active Assessment Tonsillitis J03.90 Active Problem PTSD (post-traumatic stress disorder) F43.10 Active Problem Retinal hemorrhage, right H35.61 Jul 09, 2015 Active Medications Medication Code System Code Instructions Start Date End Date Status Dosage Labetalol HCl [facility] [address]-38 300 MG Orally 3 times a day 1/2 tablet Amoxicillin [facility] [address]-60 500 MG Orally every 12 hrs January 28, 2016 February 04, 2016 1 tablet Ativan [facility] [address]-85 0.5 MG Orally 2 times a day February 18, 2015 1 tablet as needed Cetirizine HCl [facility] [address]-38 10 MG Orally Once a day Oct 20, 2015 as directed BuPROPion HCl (SR) [facility] [address]-67 150 MG TAKE ONE TABLET BY MOUTH TWICE DAILY Procedures Procedure Coding System Code Date Office Visit, Est Pt., Level 3 CPT-4 53541 January 28, 2016 STREP A ASSAY W/OPTIC CPT-4 97487 January 28, 2016 Vital Signs Date/Time: January 28, 2016 Temperature 99.1 F Weight 270.9 lbs Height 64 in BMI 46.49 Index Blood Pressure Diastolic 86 mmHg Blood Pressure Systolic 130 mmHg Cardiac Monitoring Heart Rate 84 bpm Results Name Result Date Reference Range Unit Abnormality Flag STREP A (IN HOUSE) ----STREP A Negative [id number] ----Control + [id number] ----Lot # [id number] ----Exp date 08/07/201720160128 Summary Purpose [employer] Submission
--- OUTSIDE RECORDS SUMMARY | 2017-09-16 05:24 | XMS REPORT ---
Author Author CHIO MENENDEZ [facility] [employer] Address Unknown Phone Unavailable Care Team Providers Care Dye And Chemical Coordinator Name Role Phone CHIO MENENDEZ CP Unavailable Allergies, Adverse Reactions, Alerts Substance Reaction Event Type Diflucan Info Not Available Drug Allergy Problems Problem Type Condition Code Onset Dates Condition Status Assessment No abnormality detected by assessment of physical health Z71.1 Active Problem Retinal hemorrhage H35.60 Active Problem Anxiety F41.9 Active Problem HTN (hypertension) I10 Active Problem Retinal hemorrhage, right H35.61 Jul 09, 2015 Active Assessment Abdominal pain R10.9 Active Problem PTSD (post-traumatic stress disorder) F43.10 Active Problem Anxiety 300.00 Active Medications Medication Code System Code Instructions Start Date End Date Status Dosage Ativan [facility] [address]-46 0.5 MG Orally 2 times a day February 18, 2015 1 tablet as needed Labetalol HCl [facility] [address]-60 300 MG Orally 3 times a day February 18, 2015 1 Wellbutrin SR [facility] [address]-28 150 MG Nov 17, 2014 1 Tablet 2 times per day Procedures Procedure Coding System Code Date Office Visit, Est Pt., Level 3 CPT-4 59938 Oct 11, 2015 URINALYSIS, AUTO, W/O SCOPE CPT-4 92898 Oct 11, 2015 Vital Signs Date/Time: Oct 11, 2015 Temperature 98.6 F Weight 272.0 lbs Height 64 in BMI 46.68 Index Blood Pressure Diastolic 78 mmHg Blood Pressure Systolic 110 mmHg Cardiac Monitoring Heart Rate 86 bpm Results Name Result Date Reference Range Unit Abnormality Flag UA LONG DIP (IN HOUSE) ----LUIS ARMANDO negative 20151011 ----NIT negative 20151011 ----Exp date 20151011 ----Lot # [id number] ----SG 1.010 20151011 ----KET negative 20151011 ----TROY negative 20151011 ----GLU negative 20151011 ----Odor none 20151011 ----pH 6.5 20151011 ----BLO 3+ 20151011 ----URO 0.2 20151011 ----Protein negative 20151011 ----Lot # [id number] ----Exp date 20151011 ----Clarity clear 20151011 ----Color yellow 20151011 Summary Purpose [employer] Submission
--- OUTSIDE RECORDS SUMMARY | 2017-09-16 05:24 | XMS REPORT ---
Author Author THELMA FREEMAN Organization [employer] Address Unknown Phone Unavailable Care Team Providers Care Tray Service Worker Name Role Phone THELMA FREEMAN CP Unavailable Allergies No Known Allergies Problems Problem Type Condition ICD-9 Code Onset Dates Condition Status Problem Other specified counseling V65.49 Active Problem Essential hypertension, benign 401.1 Active Problem Pain in joint, lower leg 719.46 Active Problem Pain in soft tissues of limb 729.5 Active Problem Simple or unspecified chronic serous otitis media 381.10 Active Problem Anxiety 300.00 Active Problem Acute sinusitis, unspecified 461.9 Active Problem Urinary tract infection, site not specified 599.0 Active Problem 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 Active Problem Candidiasis of skin and nails 112.3 Active Problem Pityriasis versicolor 111.0 Active Problem Major depressive disorder, recurrent episode, moderate 296.32 Active Problem Impacted cerumen 380.4 Active Problem Unspecified breast screening V76.10 Active Problem Diffuse cystic mastopathy 610.1 Active Problem Cervicalgia 723.1 Active Problem Posttraumatic stress disorder 309.81 Active Problem 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
--- OUTSIDE RECORDS SUMMARY | 2017-09-16 05:24 | XMS REPORT ---
Author Author SUSIE LEMUS [facility] e[employer] Address Unknown Phone Unavailable Care Team Providers Care Leaf Binner Name Role Phone SUSIE LEMUS Unavailable Allergies, Adverse Reactions, Alerts Substance Reaction Event Type Diflucan Info Not Available Drug Allergy Problems Problem Type Condition Code Onset Dates Condition Status Assessment Vaginal discharge N89.8 Active Assessment Encounter for screening for malignant neoplasm of cervix Z12.4 Active Assessment Morbid obesity, unspecified obesity type E66.01 Active Problem Retinal hemorrhage H35.60 Active Problem Anxiety F41.9 Active Problem HTN (hypertension) I10 Active Problem Retinal hemorrhage, right H35.61 Jul 09, 2015 Active Assessment Well woman exam Z01.419 Active Problem PTSD (post-traumatic stress disorder) F43.10 Active Problem Anxiety 300.00 Active Assessment Unprotected sexual intercourse Z72.51 Active Assessment Family history of diabetes mellitus Z83.3 Active Assessment Depression, unspecified depression type F32.9 Active Assessment Anxiety F41.9 Active Medications Medication Code System Code Instructions Start Date End Date Status Dosage Wellbutrin SR [facility] [address]-47 150 MG Nov 17, 2014 1 Tablet 2 times per day Ativan [facility] [address]-76 0.5 MG Orally 2 times a day February 18, 2015 1 tablet as needed Cetirizine HCl [facility] [address]-88 10 MG Orally Once a day Oct 20, 2015 as directed Flagyl [facility] [address]-68 500 MG Orally 2 times a day Oct 27, 2015 Nov 03, 2015 1 tablet Labetalol HCl [facility] [address]-15 300 MG Orally 3 times a day February 18, 2015 1 Procedures Procedure Coding System Code Date TRICHOMONAS ASSAY W/OPTIC CPT-4 56279 Oct 27, 2015 CULTURE, BACTERIA, OTHER CPT-4 15164 Oct 27, 2015 SPECIMEN HANDLING CPT-4 81925 Oct 27, 2015 Preventive Care Est Pt. Age 18-39 CPT-4 78409 Oct 27, 2015 Vital Signs Date/Time: Oct 27, 2015 Temperature 99.5 F Weight 277.3 lbs Height 64 in BMI 47.59 Index Blood Pressure Diastolic 88 mmHg Blood Pressure Systolic 132 mmHg Cardiac Monitoring Heart Rate 84 bpm Results No Known Results Summary Purpose eClinicalWorks Submission
--- OUTSIDE RECORDS SUMMARY | 2017-09-16 05:24 | XMS REPORT ---
Author Author ALINA RODRIGUEZ [facility] Address Unknown Care Team Providers Care Assistant Housekeeping Manager Name Role Phone JENNIFER ALINA Unavailable PROBLEMS Type Condition ICD9-CM Code [id number] Code Onset Dates Condition Status SNOMED Code Problem Retinal hemorrhage, right H35.61 Jul, Active 80889534 Problem Seasonal allergic rhinitis, unspecified allergic rhinitis trigger J30.2 Active 242331494 Problem Morbid obesity due to excess calories E66.01 Active 202392917 Problem PTSD (post-traumatic stress disorder) F43.10 Active 18430627 Problem Retinal hemorrhage H35.60 Active 06519178 Problem Anxiety F41.9 Active 87651627 Problem HTN (hypertension) I10 Active 90074381 ALLERGIES No Known Allergies SOCIAL HISTORY No smoking Hx information available PLAN OF CARE Activity Details Follow Up 1 Week Reason:TE - surgical- 1 hour VITAL SIGNS MEDICATIONS Medication Instructions Dosage Frequency Start Date End Date Duration Status Clindamycin HCl 150 MG Orally every 6 hrs 2 capsules 6h 7 days Active RESULTS No Results PROCEDURES Procedure Date Ordered Related Diagnosis Body Site Dental no charge Oct 26, 2016 IMMUNIZATIONS No Known Immunizations
--- OUTSIDE RECORDS SUMMARY | 2017-09-16 05:25 | XMS REPORT ---
Author Author EDDY PEDERSON [facility] eClinicalWorks Address Unknown Phone Unavailable Care Team Providers Care Contracts Manager Name Role Phone EDDY PEDERSON CP Unavailable Allergies, Adverse Reactions, Alerts Substance Reaction Event Type Diflucan Info Not Available Drug Allergy Problems Problem Type Condition ICD-9 Code Onset Dates Condition Status Problem Other specified counseling V65.49 Active Problem Essential hypertension, benign 401.1 Active Problem Pain in joint, lower leg 719.46 Active Problem Pain in soft tissues of limb 729.5 Active Assessment Upper respiratory infection 465.9 Active Problem Simple or unspecified chronic serous otitis media 381.10 Active Assessment Pharyngitis 462 Active Problem Anxiety 300.00 Active Problem Acute [...] Start Date End Date Status Dosage Ativan [facility] [address]-69 0.5 MG Orally PRN February 18, 2015 1 tablet as needed Augmentin [facility] [address]-64 875-125 MG Orally every 12 hrs Jun 23, 2015 Jul 03, 2015 1 tablet Labetalol HCl [facility] [address]-89 300 MG Orally 3 times a day February 18, 2015 1 Wellbutrin SR [facility] [address]-02 150 mg Nov 17, 2014 1 Tablet 2 times per day Procedures Procedure Coding System Code Date Office Visit, Est Pt., Level 3 CPT-4 39364 Jun 23, 2015 Vital Signs Date/Time: Jun 23, 2015 Temperature 98.2 F Weight 261.6 lbs Height 64 in BMI 44.90 Index Blood Pressure Diastolic 86 mmHg Blood Pressure Systolic 128 mmHg Cardiac Monitoring Heart Rate 80 bpm Results No Known Results Summary Purpose eClinicalWorks Submission
--- OUTSIDE RECORDS SUMMARY | 2017-09-16 05:25 | XMS REPORT ---
Author ONEIDA Redd Organization [employer] Address Unknown Phone Unavailable Care Team Providers Care Teaching Manager Name Role Phone ONEIDA PINEDA CP Unavailable Allergies No Known Allergies Problems Problem Type Condition Code Onset Dates Condition Status Problem Retinal hemorrhage H35.60 Active Problem Anxiety F41.9 Active Problem HTN (hypertension) I10 Active Problem PTSD (post-traumatic stress disorder) F43.10 Active Problem Retinal hemorrhage, right H35.61 Jul 09, 2015 Active Medications Medication Code System Code Instructions Start Date End Date Status Dosage Labetalol HCl [facility] [address]-32 300 mg Orally 3 times a day 1/2 tablet Results No Known Results Summary Purpose eClinicalWorks Submission
--- OUTSIDE RECORDS SUMMARY | 2017-09-16 05:25 | XMS REPORT ---
Author ONEIDA Redd Organization [employer] Address Unknown Phone Unavailable Care Team Providers Care General Science Teacher Name Role Phone ONEIDA PINEDA CP Unavailable [...] Date End Date Status Dosage Labetalol HCl [facility] 98028121758 300 MG Orally 3 times a day 1/2 tablet Results No Known Results Summary Purpose eClinicalWorks Submission
--- OUTSIDE RECORDS SUMMARY | 2017-09-16 05:25 | XMS REPORT ---
Author Author CHIO MENENDEZ Organization [employer] Address Unknown Phone Unavailable Care Team Providers Care Tailor Women'S Garment Alteration Name Role Phone CHIO MENENDEZ CP Unavailable Allergies, Adverse Reactions, Alerts Substance Reaction Event Type Diflucan Info Not Available Drug Allergy Problems Problem Type Condition Code Onset Dates Condition Status Problem Retinal hemorrhage H35.60 Active Problem Anxiety F41.9 Active Problem HTN (hypertension) I10 Active Problem Retinal hemorrhage, right H35.61 Jul 09, 2015 Active Assessment Bloody diarrhea R19.7 Active Problem PTSD (post-traumatic stress disorder) F43.10 Active Problem Anxiety 300.00 Active Medications Medication Code System Code Instructions Start Date End Date Status Dosage Ativan [facility] [address]-48 0.5 MG Orally 2 times a day February 18, 2015 1 tablet as needed Wellbutrin SR [facility] [address]-74 150 MG Nov 17, 2014 1 Tablet 2 times per day Cipro [facility] [address]-89 250 MG Orally once Sep 27, 2015 3 tablet Labetalol HCl [facility] [address]-37 300 MG Orally 3 times a day February 18, 2015 1 Metronidazole [facility] [address]-13 500 MG Orally Twice a day Sep 27, 2015 Oct 07, 2015 1 tablet Procedures Procedure Coding System Code Date Office Visit, Est Pt., Level 3 CPT-4 71508 Sep 27, 2015 TEST FOR BLOOD, FECES CPT-4 53527 Sep 27, 2015 Vital Signs Date/Time: Sep 27, 2015 Temperature 98.8 F Weight 272.4 lbs Height 64 in BMI 46.75 Index Blood Pressure Diastolic 80 mmHg Blood Pressure Systolic 112 mmHg Cardiac Monitoring Heart Rate 88 bpm Results Name Result Date Reference Range Unit Abnormality Flag HEMOCCULT (IN HOUSE) ----RESULTS positive [id number] ----Control + [id number] ----Lot # [id number] ----Exp date [id number] Summary Purpose eClinicalWorks Submission
--- OUTSIDE RECORDS SUMMARY | 2017-09-16 05:25 | XMS REPORT ---
Author Author THELMA FREEMAN Organization [employer] Address Unknown Phone Unavailable Care Team Providers Care Occupational Therapy Assistant Name Role Phone THELMA FREEMAN CP Unavailable [...] Panic disorder without agoraphobia 300.01 Active Medications No Known Medications Results No Known Results Summary Purpose eClinicalWorks Submission
--- OUTSIDE RECORDS SUMMARY | 2017-09-16 05:25 | XMS REPORT ---
Author Author RYLEY Morocho [facility] Address Unknown Care Team Providers Care Telecommunication Engineer Name Role Phone danielaBritney RYLEY Unavailable PROBLEMS Type Condition ICD9-CM Code [id number] Code Onset Dates Condition Status SNOMED Code Problem Retinal hemorrhage, right H35.61 Jul, Active 34335381 Problem Seasonal allergic rhinitis, unspecified allergic rhinitis trigger J30.2 Active 856538767 Problem Morbid obesity due to excess calories E66.01 Active 885333065 Problem Anxiety F41.9 Active 94944326 Problem PTSD (post-traumatic stress disorder) F43.10 Active 98369714 Problem HTN (hypertension) I10 Active 76890194 Problem Retinal hemorrhage H35.60 Active 16897393 ALLERGIES Substance Reaction Event Type Date Status Diflucan Unknown Drug Allergy Aug, Active SOCIAL HISTORY No smoking Hx information available PLAN OF CARE Activity Details Follow Up 1 Week Reason:te VITAL SIGNS Height 64 in 2016-09-05 Blood pressure systolic 134 mmHg 2016-09-05 Blood pressure diastolic 92 mmHg 2016-09-05 MEDICATIONS Medication Instructions Dosage Frequency Start Date End Date Duration Status Ibuprofen 800 MG Orally Three times a day 1 tablet 8h Aug,Oct 30 day(s) Active Labetalol HCl 300 MG Orally 3 times a day 1/2 tablet 8h 13 days Active [place] 5-325 MG Orally every 6 hrs 1 tablet as needed 6h Aug,Sep 4 days Active Augmentin 875-125 MG Orally every 12 hrs 1 tablet 12h Aug, Sep, 10 day(s) Active Ativan 0.5 MG Orally 2 times a day 1 tablet as needed 12h February, Active BuPROPion HCl (SR) 150 MG TAKE ONE TABLET BY MOUTH TWICE DAILY 30 Active Amoxicillin 500 MG Orally Four times a day 1 capsule 6h Aug,Sep 7 days Active RESULTS No Results PROCEDURES Procedure Date Ordered Related Diagnosis Body Site LTD ORAL EVALUATION - PROBLEM FOCUS Sep 05, 2016 INTRAORL-PERIAPICAL 1 FILM 57501 Sep 05, 2016 INTRAORL-PERIAPICAL EA ADD FILM Sep 05, 2016 IMMUNIZATIONS No Known Immunizations
--- OUTSIDE RECORDS SUMMARY | 2017-09-16 05:25 | XMS REPORT ---
Author Author ONEIDA PINEDA Organization [facility] Address [address] [place] [address] Care Team Providers Care Screen Roller Name Role Phone JENNI PINEDANETTE Unavailable PROBLEMS Type Condition ICD9-CM Code [id number] Code Onset Dates Condition Status SNOMED Code Problem Retinal hemorrhage, right H35.61 Jul, Active 96496047 Problem Seasonal allergic rhinitis, unspecified allergic rhinitis trigger J30.2 Active 187845998 Problem Morbid obesity due to excess calories E66.01 Active 267127976 Problem Anxiety F41.9 Active 55748648 Problem PTSD (post-traumatic stress disorder) F43.10 Active 35298335 Problem HTN (hypertension) I10 Active 02993130 Problem Retinal hemorrhage H35.60 Active 83860862 ALLERGIES No Known Allergies SOCIAL HISTORY No smoking Hx information available PLAN OF CARE VITAL SIGNS MEDICATIONS Medication Instructions Dosage Frequency Start Date End Date Duration Status Labetalol HCl 300 MG Orally 3 times a day MUST KEEP APPT 10/06 FOR REFILL 1/ 2 tablet 18 days Active RESULTS No Results PROCEDURES No Known procedures IMMUNIZATIONS No Known Immunizations
--- OUTSIDE RECORDS SUMMARY | 2017-09-16 05:25 | XMS REPORT ---
Author Author CLARITA WILLINGHAM Organization [facility] Address [address] [place] [address] Care Team Providers Care Pediatric Nurse Practitioner Name Role Phone CLARITA WILLINGHAM Unavailable PROBLEMS Type Condition ICD9-CM Code [id number] Code Onset Dates Condition Status SNOMED Code Problem Retinal hemorrhage, right H35.61 Jul, Active 63611463 Problem Seasonal allergic rhinitis, unspecified allergic rhinitis trigger J30.2 Active 901302668 Problem Morbid obesity due to excess calories E66.01 Active 404450272 Problem PTSD (post-traumatic stress disorder) F43.10 Active 70026859 Problem Retinal hemorrhage H35.60 Active 57880321 Problem Anxiety F41.9 Active 66249371 Problem HTN (hypertension) I10 Active 44407980 ALLERGIES Substance Reaction Event Type Date Status Diflucan Unknown Drug Allergy February, Active SOCIAL HISTORY Never Assessed PLAN OF CARE Activity Details Follow Up prn Reason: VITAL SIGNS Height 64 in 2017-02-14 Weight 323.8 lbs 2017-02-14 Temperature 98.0 degrees Fahrenheit 2017-02-14 Heart Rate 92 bpm 2017-02-14 Respiratory Rate 20 2017-02-14 BMI 55.57 kg/m2 2017-02-14 Blood pressure systolic 136 mmHg 2017-02-14 Blood pressure diastolic 86 mmHg 2017-02-14 MEDICATIONS Medication Instructions Dosage Frequency Start Date End Date Duration Status Labetalol HCl 300 MG Orally 3 times a day 1 tablet 8h Active Hydrochlorothiazide 25 MG Orally Once a day 1 tablet in the morning 24h Active Amoxicillin 875 MG Orally every 12 hrs 1 tablet 12h February, February, 10 day(s) Active Ativan 0.5 MG Orally 2 times a day 1 tablet as needed 12h February, Active RESULTS Name Result Date Reference Range STREP A (IN HOUSE) 2017-02-14 STREP A Positive Control + Lot # [id number] Exp date jul 26 PROCEDURES Procedure Date Ordered Result Body Site STREP A ASSAY W/OPTIC February 14, 2017 IMMUNIZATIONS No Known Immunizations MEDICAL (GENERAL) HISTORY Type Description Date Medical History hypertension Medical History obesity Medical History depression Medical History PTSD Medical History Optic nerve swelling r/t hx of pre-eclampsia Medical History panic disorder Medical History chondromalacia patella Medical History Retinal hemorrhage, right 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
--- OUTSIDE RECORDS SUMMARY | 2017-09-16 05:25 | XMS REPORT ---
Author Author ALINA RODRIGUEZ [facility] Address Unknown Care Team Providers Care Police Patrol Lieutenant Name Role Phone ALINA RODRIGUEZ Unavailable PROBLEMS Type Condition ICD9-CM Code [id number] Code Onset Dates Condition Status SNOMED Code Problem Retinal hemorrhage, right H35.61 Jul, Active 59190643 Problem Seasonal allergic rhinitis, unspecified allergic rhinitis trigger J30.2 Active 025447808 Problem Morbid obesity due to excess calories E66.01 Active 860584497 Problem PTSD (post-traumatic stress disorder) F43.10 Active 66494524 Problem Retinal hemorrhage H35.60 Active 24255430 Problem Anxiety F41.9 Active 23109199 Problem HTN (hypertension) I10 Active 76553071 ALLERGIES No Known Allergies SOCIAL HISTORY No smoking Hx information available PLAN OF CARE VITAL SIGNS MEDICATIONS No Known Medications RESULTS No Results PROCEDURES No Known procedures IMMUNIZATIONS No Known Immunizations
--- OUTSIDE RECORDS SUMMARY | 2017-09-16 05:25 | XMS REPORT ---
Author Author PINEDA ONEIDA Organization [facility] Address [address] [place] [address] Care Team Providers Care Auto Body Worker Name Role Phone ONEIDA PINEDA Unavailable PROBLEMS Type Condition ICD9-CM Code [id number] Code Onset Dates Condition Status SNOMED Code Problem Retinal hemorrhage, right H35.61 Jul, Active 07453245 Problem Seasonal allergic rhinitis, unspecified allergic rhinitis trigger J30.2 Active 066917746 Problem Morbid obesity due to excess calories E66.01 Active 341465322 Problem PTSD (post-traumatic stress disorder) F43.10 Active 73072539 Problem Retinal hemorrhage H35.60 Active 06837411 Problem Anxiety F41.9 Active 88826741 Problem HTN (hypertension) I10 Active 07126205 ALLERGIES Substance Reaction Event Type Date Status Diflucan Unknown Drug Allergy Oct, Active SOCIAL HISTORY No smoking Hx information available PLAN OF CARE Activity Details Follow Up 4 Weeks Reason:diet log and weight loss VITAL SIGNS Height 64 in 2016-10-24 Weight 317.3 lbs 2016-10-24 Temperature 98.3 degrees Fahrenheit 2016-10-24 Heart Rate 82 bpm 2016-10-24 Respiratory Rate 18 2016-10-24 BMI 54.46 kg/m2 2016-10-24 Blood pressure systolic 118 mmHg 2016-10-24 Blood pressure diastolic 76 mmHg 2016-10-24 MEDICATIONS Medication Instructions Dosage Frequency Start Date End Date Duration Status Labetalol HCl 300 MG Orally 3 times a day MUST KEEP APPT 10/06 FOR REFILL 1/ 2 tablet 18 days Active BuPROPion HCl (SR) 150 MG TAKE ONE TABLET BY MOUTH TWICE DAILY 30 Active Ativan 0.5 MG Orally 2 times a day 1 tablet as needed 12h February, Active Lorazepam 0.5 MG Orally every 6 hrs 1 tablet as needed 6h Active Contrave 8-90 MG Orally Twice a day 1 d x 7, then bid x 7 then 2 in am one at hs, then 2 bid 12h Oct, Nov, 30 day(s) Active RESULTS No Results PROCEDURES Procedure Date Ordered Related Diagnosis Body Site Office Visit, Est Pt., Level 4 Oct 24, 2016 IMMUNIZATIONS No Known Immunizations
--- OUTSIDE RECORDS SUMMARY | 2017-09-16 05:25 | XMS REPORT ---
Author Author MORRO JOHNSON Organization [employer]Works Address Unknown Phone Unavailable Care Team Providers Care Laborer Chemical Processing Name Role Phone MORRO JOHNSON CP Unavailable Allergies, Adverse Reactions, Alerts Substance Reaction Event Type Diflucan Info Not Available Drug Allergy Problems Problem Type Condition Code Onset Dates Condition Status Problem Retinal hemorrhage H35.60 Active Problem Anxiety F41.9 Active Problem HTN (hypertension) I10 Active Problem Retinal hemorrhage, right H35.61 Jul 09, 2015 Active Assessment Allergic rhinitis J30.9 Active Problem PTSD (post-traumatic stress disorder) F43.10 Active Problem Anxiety 300.00 Active Medications Medication Code System Code Instructions Start Date End Date Status Dosage Wellbutrin SR [facility] [address]-81 150 MG Nov 17, 2014 1 Tablet 2 times per day Ativan [facility] [address]-42 0.5 MG Orally 2 times a day February 18, 2015 1 tablet as needed Labetalol HCl [facility] [address]-29 300 MG Orally 3 times a day February 18, 2015 1 Cetirizine HCl [facility] [address]-27 10 MG Orally Once a day Oct 20, 2015 as directed Fluticasone Propionate [facility] [address]-01 50 MCG/ACT Nasally Once a day Oct 20, 2015 1 spray in each nostril Procedures Procedure Coding System Code Date Office Visit, Est Pt., Level 3 CPT-4 60344 Oct 20, 2015 Vital Signs Date/Time: Oct 20, 2015 Temperature 98.9 F Weight 278.1 lbs Height 64 in BMI 47.73 Index Blood Pressure Diastolic 82 mmHg Blood Pressure Systolic 134 mmHg Cardiac Monitoring Heart Rate 88 bpm Results No Known Results Summary Purpose eClinicalWorks Submission
--- OUTSIDE RECORDS SUMMARY | 2017-09-16 05:25 | XMS REPORT ---
Author ONEIDA Redd Organization [employer] Address Unknown Phone Unavailable Care Team Providers Care Tin Whiz Machine Operator Name Role Phone ONEIDA PINEDA CP Unavailable Allergies No Known Allergies Problems Problem Type Condition Code Onset Dates Condition Status Problem Retinal hemorrhage H35.60 Active Problem Anxiety F41.9 Active Problem HTN (hypertension) I10 Active Problem PTSD (post-traumatic stress disorder) F43.10 Active Problem Retinal hemorrhage, right H35.61 Jul 09, 2015 Active Medications No Known Medications Results No Known Results Summary Purpose eClinicalWorks Submission
--- OUTSIDE RECORDS SUMMARY | 2017-09-16 05:26 | XMS REPORT ---
Author Author ALINA RODRIGUEZ [facility] Address Unknown Care Team Providers Care Automobile Tester Name Role Phone ALINA RODRIGUEZ Unavailable PROBLEMS Type Condition ICD9-CM Code NTH87-LI Code Onset Dates Condition Status SNOMED Code Problem Retinal hemorrhage, right H35.61 Jul, Active 45970355 Problem Seasonal allergic rhinitis, unspecified allergic rhinitis trigger J30.2 Active 619367007 Problem Morbid obesity due to excess calories E66.01 Active 460549196 Problem PTSD (post-traumatic stress disorder) F43.10 Active 02050553 Problem Retinal hemorrhage H35.60 Active 39972069 Problem Anxiety F41.9 Active 44649385 Problem HTN (hypertension) I10 Active 48579521 ALLERGIES Substance Reaction Event Type Date Status Diflucan Unknown Drug Allergy Sep, Active SOCIAL HISTORY No smoking Hx information available PLAN OF CARE Activity Details Follow Up prn Reason:TE #30 VITAL SIGNS Blood pressure systolic 128 mmHg 2016-09-23 Blood pressure diastolic 77 mmHg 2016-09-23 MEDICATIONS Medication Instructions Dosage Frequency Start Date End Date Duration Status BuPROPion HCl (SR) 150 MG TAKE ONE TABLET BY MOUTH TWICE DAILY 30 Active Ibuprofen 800 MG Orally Three times a day 1 tablet 8h Aug,Oct 30 day(s) Active Labetalol HCl 300 MG Orally 3 times a day MUST KEEP APPT 10/06 FOR REFILL 1/ 2 tablet Active Ativan 0.5 MG Orally 2 times a day 1 tablet as needed 12h 13 Feb, 2015 Active RESULTS No Results PROCEDURES Procedure Date Ordered Related Diagnosis Body Site SURG REMOVAL ERUPTED TOOTH Sep 23, 2016 IMMUNIZATIONS No Known Immunizations
--- OUTSIDE RECORDS SUMMARY | 2017-09-16 05:26 | XMS REPORT ---
Author Author WILMER CANELA Organization [employer] Address Unknown Phone Unavailable Care Team Providers Care Kitchen Food Assembler Name Role Phone WILMER CANELA CP Unavailable Allergies, Adverse Reactions, Alerts Substance Reaction Event Type Diflucan Info Not Available Drug Allergy Problems Problem Type Condition Code Onset Dates Condition Status Problem Retinal hemorrhage H35.60 Active Problem Anxiety F41.9 Active Problem HTN (hypertension) I10 Active Assessment Pharyngitis J02.9 Active Problem PTSD (post-traumatic stress disorder) F43.10 Active Problem Retinal hemorrhage, right H35.61 Jul 09, 2015 Active Medications Medication Code System Code Instructions Start Date End Date Status Dosage Amoxicillin [facility] [address]-04 500 MG Orally 3 times a day February 06, 2016 February 16, 2016 1 tablet Cetirizine HCl [facility] [address]-72 10 MG Orally Once a day Oct 20, 2015 as directed BuPROPion HCl (SR) [facility] [address]-04 150 MG TAKE ONE TABLET BY MOUTH TWICE DAILY Labetalol HCl [facility] [address]-16 300 mg Orally 3 times a day 1/2 tablet Ativan [facility] [address]-62 0.5 MG Orally 2 times a day February 18, 2015 1 tablet as needed Procedures Procedure Coding System Code Date Office Visit, Est Pt., Level 3 CPT-4 29660 February 06, 2016 Vital Signs Date/Time: February 06, 2016 Temperature 97.6 F Weight 272.2 lbs Height 64 in BMI 46.72 Index Blood Pressure Diastolic 78 mmHg Blood Pressure Systolic 124 mmHg Cardiac Monitoring Heart Rate 76 bpm Results No Known Results Summary Purpose [employer] Submission
--- OUTSIDE RECORDS SUMMARY | 2017-09-16 05:26 | XMS REPORT ---
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 Problem PTSD (post-traumatic stress disorder) F43.10 Active Problem Retinal hemorrhage, right H35.61 Jul 09, 2015 Active Medications Medication Code System Code Instructions Start Date End Date Status Dosage BuPROPion HCl (SR) [facility] 84965407526 150 MG TAKE ONE TABLET BY MOUTH TWICE DAILY Cetirizine HCl [facility] [address]-63 10 MG Orally Once a day Oct 20, 2015 as directed Ibuprofen [facility] [address]-19 800 MG Orally Three times a day Sep 03, 2016 Nov 02, 2016 1 tablet Augmentin [facility] [address]-06 875-125 MG Orally every 12 hrs Sep 03, 2016 Sep 13, 2016 1 tablet Ativan [facility] [address]-67 0.5 MG Orally 2 times a day February 18, 2015 1 tablet as needed Labetalol HCl [facility] 42550555909 300 MG Orally 3 times a day 1/2 tablet Procedures Procedure Coding System Code Date Office Visit, Est Pt., Level 2 CPT-4 33152 Sep 03, 2016 Vital Signs Date/Time: Sep 03, 2016 Cardiac Monitoring Heart Rate 84 bpm Weight 304.2 lbs Height 64 in BMI 52.21 Index Blood Pressure Diastolic 86 mmHg Blood Pressure Systolic 146 mmHg Results No Known Results Summary Purpose [employer] Submission
--- OUTSIDE RECORDS SUMMARY | 2017-09-16 05:26 | XMS REPORT ---
Author ONEIDA Redd Organization [employer] Address Unknown Phone Unavailable Care Team Providers Care Bulb Grader Name Role Phone ONEIDA PINEDA CP Unavailable Allergies No Known Allergies Problems Problem Type Condition Code Onset Dates Condition Status Problem Retinal hemorrhage H35.60 Active Problem Anxiety F41.9 Active Problem HTN (hypertension) I10 Active Problem Retinal hemorrhage, right H35.61 Jul 09, 2015 Active Problem PTSD (post-traumatic stress disorder) F43.10 Active Problem Anxiety 300.00 Active Medications Medication Code System Code Instructions Start Date End Date Status Dosage Labetalol HCl [facility] [address]-79 300 MG Orally 3 times a day February 18, 2015 1 Results No Known Results Summary Purpose [employer]ClinicalWorks Submission
--- OUTSIDE RECORDS SUMMARY | 2017-09-16 05:26 | XMS REPORT ---
Author Author ALINA RODRIGUEZ [facility] Address Unknown Care Team Providers Care Broom Stitcher Name Role Phone ALINA RODRIGUEZ Unavailable PROBLEMS Type Condition ICD9-CM Code [id number] Code Onset Dates Condition Status SNOMED Code Problem Retinal hemorrhage, right H35.61 Jul, Active 02823077 Problem Seasonal allergic rhinitis, unspecified allergic rhinitis trigger J30.2 Active 623970211 Problem Morbid obesity due to excess calories E66.01 Active 916837643 Problem PTSD (post-traumatic stress disorder) F43.10 Active 35396454 Problem Retinal hemorrhage H35.60 Active 40732652 Problem Anxiety F41.9 Active 98987075 Problem HTN (hypertension) I10 Active 38498317 ALLERGIES Substance Reaction Event Type Date Status Diflucan Unknown Drug Allergy Oct, Active SOCIAL HISTORY No smoking Hx information available PLAN OF CARE Activity Details Follow Up 1 Week Reason:Surgical TE #30 VITAL SIGNS Height 64 in 2016-10-14 Blood pressure systolic 130 mmHg 2016-10-14 Blood pressure diastolic 94 mmHg 2016-10-14 MEDICATIONS Medication Instructions Dosage Frequency Start Date End Date Duration Status Labetalol HCl 300 MG Orally 3 times a day MUST KEEP APPT 10/06 FOR REFILL 1/ 2 tablet 18 days Active Amoxicillin 500 MG Orally every 8 hrs 1 tablet 8h 7 days Active Lorazepam 0.5 MG Orally every 6 hrs 1 tablet as needed 6h Active Wellbutrin Active RESULTS No Results PROCEDURES Procedure Date Ordered Related Diagnosis Body Site LTD ORAL EVALUATION - PROBLEM FOCUS Oct 14, 2016 INTRAORL-PERIAPICAL 1 FILM 74804 Oct 14, 2016 IMMUNIZATIONS No Known Immunizations
--- OUTSIDE RECORDS SUMMARY | 2017-09-16 05:26 | XMS REPORT ---
Author Author MIRIAM ONEIDA Organization [facility] Address [address] [place] [address] Care Team Providers Care Group Work Program Aide Name Role Phone ONEIDA PINEDA Unavailable PROBLEMS Type Condition ICD9-CM Code XXH96-DT Code Onset Dates Condition Status SNOMED Code Problem Retinal hemorrhage, right H35.61 Jul, Active 54301982 Problem Seasonal allergic rhinitis, unspecified allergic rhinitis trigger J30.2 Active 508738046 Problem Morbid obesity due to excess calories E66.01 Active 177495189 Problem PTSD (post-traumatic stress disorder) F43.10 Active 38179770 Problem Retinal hemorrhage H35.60 Active 98100276 Problem Anxiety F41.9 Active 95215330 Problem HTN (hypertension) I10 Active 59366802 ALLERGIES Substance Reaction Event Type Date Status Diflucan Unknown Drug Allergy Dec, Active SOCIAL HISTORY Never Assessed PLAN OF CARE Activity Details Follow Up 3 Weeks Reason:palpitations, edema VITAL SIGNS Height 64 in 2016-12-13 Weight 324.6 lbs 2016-12-13 Temperature 98.1 degrees Fahrenheit 2016-12-13 Heart Rate 100 bpm 2016-12-13 Respiratory Rate 18 2016-12-13 BMI 55.71 kg/m2 2016-12-13 Blood pressure systolic 140 mmHg 2016-12-13 Blood pressure diastolic 90 mmHg 2016-12-13 MEDICATIONS Medication Instructions Dosage Frequency Start Date End Date Duration Status Labetalol HCl 300 MG Orally 3 times a day 1 tablet 8h Active Clindamycin HCl 150 MG Orally every 6 hrs 2 capsules 6h Dec, Dec, 7 days Active Hydrochlorothiazide 25 MG Orally Once a day 1 tablet in the morning 24h Active Ativan 0.5 MG Orally 2 times a day 1 tablet as needed 12h February, Active RESULTS No Results PROCEDURES No Known procedures IMMUNIZATIONS No Known Immunizations MEDICAL (GENERAL) HISTORY Type Description Date Medical History hypertension Medical History obesity Medical History depression Medical History PTSD Medical History Optic nerve swelling r/t hx of pre-eclampsia Medical History panic disorder Medical History chondromalacia patella Medical History Retinal hemorrhage, right 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
--- OUTSIDE RECORDS SUMMARY | 2017-09-16 05:26 | XMS REPORT ---
Author Author ALINA RODRIGUEZ [facility] Address Unknown Care Team Providers Care Steam Pipe Fitter Name Role Phone ALINA RODRIGUEZ Unavailable PROBLEMS Type Condition ICD9-CM Code VEL45-GD Code Onset Dates Condition Status SNOMED Code Problem Retinal hemorrhage, right H35.61 Jul, Active 11847708 Problem Seasonal allergic rhinitis, unspecified allergic rhinitis trigger J30.2 Active 518637975 Problem Morbid obesity due to excess calories E66.01 Active 065909395 Problem PTSD (post-traumatic stress disorder) F43.10 Active 42721988 Problem Retinal hemorrhage H35.60 Active 01058725 Problem Anxiety F41.9 Active 75093162 Problem HTN (hypertension) I10 Active 20881560 ALLERGIES Substance Reaction Event Type Date Status Diflucan Unknown Drug Allergy Nov, Active SOCIAL HISTORY Never Assessed PLAN OF CARE Activity Details Follow Up prn Reason:devin/hygiene VITAL SIGNS Height 64 in 2016-11-24 Blood pressure systolic 90 mmHg 2016-11-24 Blood pressure diastolic 62 mmHg 2016-11-24 MEDICATIONS Medication Instructions Dosage Frequency Start Date End Date Duration Status Labetalol HCl 300 MG Orally 3 times a day MUST KEEP APPT 10/06 FOR REFILL 1/ 2 tablet 30 days Active Azithromycin 250 MG Orally Once a day 2 tablets on the first day, then 1 tablet daily for 4 days 24h 5 day(s) Active Lorazepam Active RESULTS No Results PROCEDURES Procedure Date Ordered Result Body Site LTD ORAL EVALUATION - PROBLEM FOCUS Nov 24, 2016 INTRAORL-PERIAPICAL 1 FILM 20894 Nov 24, 2016 BITEWING - SINGLE FILM Nov 24, 2016 IMMUNIZATIONS No Known Immunizations MEDICAL (GENERAL) HISTORY Type Description Date Medical History hypertension Medical History obesity Medical History depression Medical History PTSD Medical History Optic nerve swelling r/t hx of pre-eclampsia Medical History panic disorder Medical History chondromalacia patella Medical History Retinal hemorrhage, right 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
[2017-09-16] MEDS ORDERED: LABE300T (05:32)
[2017-09-16] MEDS ORDERED: LACTATED RINGERS 1,000 ML IV ONE (05:37)
[2017-09-16] MEDS ORDERED: ONDANSETRON 4 MG/2 ML (SDV) Z0FRAN IVP ONE (05:45)
--- NOTE | 2017-09-16 05:48 | ED GI ---
General Chief Complaint: Abdominal/GI Problems Stated Complaint: DIARRHEA,ABD PAIN & CRAMPS,FEVER,CHILLS Nursing Triage Note: C/O DIARRHEA X6 DAYS Sepsis Screen: No Definite Risk Source of Information: Patient (WOODY PÉREZ DO) History of Present Illness Time Seen By Provider: 05:35 Initial Comments PT ARRIVES VIA POV FROM HOME C/O NAUSEA, DIARRHEA, ABDOMINAL CRAMPS AND FEVER/CHILLS X 1 WEEK STATES SHE LIVES WITH HER MOTHER AND 2 CHILDREN AND ALL HAVE BEEN ILL WITH THE SAME, BUT NO SUSPICIOUS FOODS ALL HAVE GOTTEN BETTER EXCEPT HER. PT STATES HER MOM BEGAN TO GET SICK 09/08/17, 2 DAYS LATER SHE BEGAN TO GET SICK - DID HER SON, A DAY OR TWO AFTER THAT HER DAUGHTER BECAME ILL NO VOMITING, JUST NAUSEA DIARRHEA--HAS HAD WATERY STOOLS IN LAST 12 HOURS, STOOLS WERE SOFT FORMED YESTERDAY AFTER NOON. HAS HAD LOW GRADE FEVER 99-100 HAS HAD INTERMITTENT MID ABDOMINAL CRAMPING. NO PROBLEMS URINATING. PT HAS ONGOING GI ISSUES--IBS, LACTOSE INTOLERANCE, S/P CHOLECYSTECTOMY-- FREQUENT/LOOSE STOOLS (WOODY PÉREZ Carlos CHINCHILLA) Allergies and Home Medications Allergies Coded Allergies: fluconazole (Verified Allergy, Unknown, HIVES, 12/14/15) Home Medications Hydrochlorothiazide 25 Mg Tablet, 25 MG PO DAILY, #10 Prescribed by: DWAIN DIAZ on 12/05/16 1612 Labetalol HCl 300 Mg Tablet, (Reported) Lorazepam 0.5 Mg Tablet, 1 MG PO PRN, (Reported) Review of Systems Constitutional: see HPI, chills, fever EENTM: No Symptoms Reported Respiratory: No Symptoms Reported Cardiovascular: No Symptoms Reported Gastrointestinal: See HPI, Abdominal Pain, Diarrhea, Nausea, Poor Appetite, Denies Poor Fluid Intake, Denies Vomiting Genitourinary: No Symptoms Reported, Other (LMP 3 WEEKS AGO, NORMAL. NO CONTROL) Musculoskeletal: no symptoms reported Skin: no symptoms reported Psychiatric/Neurological: No Symptoms Reported Endocrine: No Symptoms Reported Hematologic/Lymphatic: No Symptoms Reported (WOODY PÉREZ ) Past Mxptoaq-Hvvimg-Wkzljh Hx Patient Social History Alcohol Use: Occasionally Uses Alcohol Beverage of Choice: Wine, Cheap Liquor Recreational Drug Use: No Smoking Status: Never a Smoker 2nd Hand Smoke Exposure: No Recent Foreign Travel: No Contact w/Someone Who Travel: No Recent Infectious Disease Expo: No Recent Hopitalizations: No (VIPUL PÉREZA K DO) Immunizations Up To Date Tetanus Booster (TDap): Less than 5yrs (MIKAELAVIPULA K DO) Seasonal Allergies Seasonal Allergies: No (MIKAELAWOODY K DO) Surgeries History of Surgeries: Yes Surgeries: Gallbladder (MIKAELA,WOODY K DO) Respiratory History of Respiratory Disorde: No (MIKAELAWOODY K DO) Cardiovascular History of Cardiac Disorders: Yes (HX PRE-ECLAMPSIA) Cardiac Disorders: Hypertension (MIKAELAWOODY K DO) Neurological History of Neurological Disord: No (MIKAELA,WOODY K DO) Reproductive System : No Last Menstrual Period: Aug 26, 2017 Hx Reproductive Disorders: No Female Reproductive Disorders: Denies (MIKAELAVIPULA K DO) Genitourinary History of Genitourinary Disor: No (MIKAELA,WOODY K DO) Gastrointestinal History of Gastrointestinal Di: Yes (GALL BLADDER REMOVED 2009, IBS; LACTOSE INTOLERANCE) Gastrointestinal Disorders: Hemorrhoids, Gall Bladder Disease (MIKAELAWOODY K DO) Musculoskeletal History of Musculoskeletal Dis: Yes (LEFT HIP DYSPLASIA 2010, [facility]) Musculoskeletal Disorders: Arthritis (MIKAELAWOODY K DO) Endocrine History of Endocrine Disorders: Yes (GESTATIONAL DM WITH FIRST ; MORBID OBESITY) (MIKAELAVIPULA K DO) HEENT Loss of Vision: Right Hearing Impairment: Denies (MIKAELAWOODY K DO) Cancer History of Cancer: No (MIKAELA,WOODY K DO) Psychosocial History of Psychiatric Problem: Yes ([facility] Behavioral Health Disorders: Anxiety, PTSD, Depression (MIKAELAWOODY K DO) Integumentary History of Skin or Integumenta: No (MIKAELAWOODY K DO) Blood Transfusions History of Blood Disorders: No (MIKAELAWOODY K DO) Family Medical History Significant Family History: No Pertinent Family Hx (VIPUL PÉREZA K ) Physical Exam Vital Signs VS - Last 72 Hours, by Label 09/16/17 05:32 Temp 98.0 Pulse 97 Resp 20 B/P (MAP) 148/105 (119) Pulse Ox 98 O2 Delivery Room Air (CHERRY CONRAD MD) Vital Signs Capillary Refill : Less Than 3 Seconds (WOODY PÉREZ DO) General Appearance: no apparent distress, obese, other (SITTING UPRIGHT, TEXTING/PLAYING ON PHONE, MALE FRIEND IN ROOM WITH PT. SMILING. DOES NOT APPEAR TO BE ILL OR TO BE IN ANY DISCOMFORT OR DISTRESS; HAIR IS HOT PINK IN COLOR) HEENT: PERRL/EOMI, other (ORAL MUCOSA MOIST) Respiratory: normal breath sounds, no respiratory distress, no accessory muscle use Cardiovascular: regular rate, rhythm, no murmur Gastrointestinal: normal bowel sounds, non tender, soft, no organomegaly, no pulsatile mass Extremities: normal inspection, no pedal edema Back: no CVA tenderness Neurologic/Psychiatric: hazmat tanker driver II-XII nml as tested, no motor/sensory deficits, alert, normal mood/affect, oriented x 3 Skin: normal color, warm/dry (WOODY PÉREZ DO) Progress/Results/Core Measures Results/Orders Lab Results Laboratory Tests Test 09/16/17 05:55 09/16/17 06:00 Range/Units Urine Color YELLOW Urine Clarity SLIGHTLY CLOUDY Urine pH 6 5-9 Urine Specific [place] 1.020 1.016-1.022 Urine Protein 1+ H NEGATIVE Urine Glucose (UA) NEGATIVE NEGATIVE Urine Ketones NEGATIVE NEGATIVE Urine Nitrite NEGATIVE NEGATIVE Urine Bilirubin NEGATIVE NEGATIVE Urine Urobilinogen 1 NORMAL MG/DL Urine Leukocyte Esterase 1+ H NEGATIVE Urine RBC (Auto) 1+ H NEGATIVE Urine RBC RARE /HPF Urine WBC RARE /HPF Urine Squamous Epithelial Cells 5-10 /HPF Urine Crystals NONE /LPF Urine Bacteria FEW H /HPF Urine Casts NONE /LPF Urine Mucus NEGATIVE /LPF Urine Culture Indicated YES White Blood Count 8.3 4.3-11.0 10^3/uL Red Blood Count 4.98 4.35-5.85 10^6/uL Hemoglobin 13.6 11.5-16.0 G/DL Hematocrit 40 35-52 % Mean Corpuscular Volume 81 80-99 FL Mean Corpuscular Hemoglobin 27 25-34 PG Mean Corpuscular Hemoglobin Concent 34 32-36 G/DL Red Cell Distribution Width 14.0 10.0-14.5 % Platelet Count 291 130-400 10^3/uL Mean Platelet Volume 9.8 7.4-10.4 FL Neutrophils (%) (Auto) 63 42-75 % Lymphocytes (%) (Auto) 24 12-44 % Monocytes (%) (Auto) 10 0-12 % Eosinophils (%) (Auto) 3 0-10 % Basophils (%) (Auto) 0 0-10 % Neutrophils # (Auto) 5.2 1.8-7.8 X 10^3 Lymphocytes # (Auto) 1.9 1.0-4.0 X 10^3 Monocytes # (Auto) 0.9 0.0-1.0 X 10^3 Eosinophils # (Auto) 0.2 0.0-0.3 10^3/uL Basophils # (Auto) 0.0 0.0-0.1 10^3/uL Sodium Level 140 135-145 MMOL/L Potassium Level 3.2 L 3.6-5.0 MMOL/L Chloride Level 105 98-107 MMOL/L Carbon Dioxide Level 25 21-32 MMOL/L Anion Gap 10 5-14 MMOL/L Blood Urea Nitrogen 11 7-18 MG/DL Creatinine 0.78 0.60-1.30 MG/DL Estimat Glomerular Filtration Rate > 60 BUN/Creatinine Ratio 14 Glucose Level 107 H 70-105 MG/DL Calcium Level 8.7 8.5-10.1 MG/DL Total Bilirubin 0.4 0.1-1.0 MG/DL Aspartate Amino Transf (AST/SGOT) 15 5-34 U/L Alanine Aminotransferase (ALT/SGPT) 37 0-55 U/L Alkaline Phosphatase 97 40-136 U/L Total Protein 7.0 6.4-8.2 GM/DL Albumin 4.0 3.2-4.5 GM/DL Amylase Level 34 25-125 U/L Lipase 15 8-78 U/L Serum Test, Qualitative NEGATIVE NEGATIVE (CHERRY CONRAD MD) My Orders Orders - CHERRY CONRAD MD Hyoscyamine Sl Tablet (Levsin Sl Tablet) (09/16/17 06:15) Stool Culture (09/16/17 06:15) Fecal Wbc (09/16/17 06:15) C Difficile Ag + Toxin A/B. (09/16/17 06:15) Parasite Scrn Stool Giard Cryp (09/16/17 06:29) Potassium Chloride (Tablet) (Klor Con Ta (09/16/17 07:00) (CHERRY CONRAD MD) Medications Given in ED Current Medications Medications Dose Ordered Sig/Ricco Route Start Time Stop Time Status Last Admin Dose Admin Hyoscyamine Sulfate 0.25 mg ONCE ONCE SL 09/16/17 06:15 09/16/17 06:17 DC 09/16/17 06:30 0.25 MG Lactated Ringer's 1,000 ml @ 0 mls/hr Q0M ONCE IV 09/16/17 05:37 09/16/17 05:38 DC 09/16/17 06:01 0 MLS/HR Ondansetron HCl 4 mg ONCE ONCE IVP 09/16/17 05:45 09/16/17 05:46 DC 09/16/17 06:00 4 MG (CHERRY CONRAD MD) Vital Signs/I&O Vital Sign - Last 12Hours 09/16/17 05:32 Temp 98.0 Pulse 97 Resp 20 B/P (MAP) 148/105 (119) Pulse Ox 98 O2 Delivery Room Air (CHERRY CONRAD MD) Blood Pressure Mean: 119 Progress Note : Progress Note 0600--CARE TURNED OVER TO DR. CONRAD, ALL STUDIES PENDING (WOODY PÉREZ DO) Progress Note #1: Time: 06:18 Progress Note Care of this patient was assumed from Dr. Pérez at shift change. Patient is receiving IV fluids and received Zofran for nausea. Labs are pending. Levsin has been added for what patient describes as intense cramping abdominal pain with her diarrhea. Patient did provide a stool sample and would like stool studies run as she's had some degree of problems with diarrhea since being ill in July. Progress Note #2: Time: 06:50 Progress Note Nausea has resolved. Abdominal cramping has improved with Levsin. Labs were unremarkable except for mild hypokalemia. An oral dose of potassium 20 mEq will be given before dismissal. Stool specimen was provided and sent for processing. (CHERRY CONRAD MD) Departure Impression Impression: Primary Impression: Nausea vomiting and diarrhea Additional Impressions: Abdominal cramping Hypokalemia Disposition: 01 HOME, SELF-CARE Condition: Improved Departure-Patient Inst. Decision time for Depature: 06:45 (CHERRY CONRAD MD) Referrals: [facility] (PCP[facility]Family) Primary Care Physician Patient Instructions: Diarrhea in Adolescents and Adults Add. Discharge Instructions: Drink plenty of clear liquids and gradually advance your diet with small quantities of bland food as tolerated. Avoid milk products until your diarrhea resolves. For nausea and vomiting, dissolve the Zofran (ondansetron) under the tongue every 4 hours as needed. For abdominal cramping and diarrhea dissolve Levsin (hyoscyamine) under the tongue every 4 hours as needed. Take a probiotic 3 times daily as long as diarrhea persists. Follow-up with your primary care provider next week to review stool culture results. Return to care if symptoms worsen. All discharge instructions reviewed with patient and/or family. Voiced understanding. Scripts Ondansetron (Zofran Odt) 4 Mg Tab.rapdis 4 MG SL Q4H Y for NAUSEA/VOMITING-1ST LINE, #10 TAB Prov: CHERRY CONRAD MD 09/16/17 Hyoscyamine Sulfate (Levsin-Sl) 0.125 Mg Tab.subl 0.125 MG SL Q4H Y for CRAMPS, #10 TAB Prov: CHERRY CONRAD MD 09/16/17 Copy Copies To 1: ZOË LIGHT LISA K DO Sep 16, 2017 05:48 CHERRY CONRAD MD Sep 16, 2017 06:19
[2017-09-16 06:13] LABS: BASOPHILS % (AUTO) 0 % (0-10); EOSINOPHILS # (AUTO) 0.2 10^3/uL (0.0-0.3); EOSINOPHILS % (AUTO) 3 % (0-10); LYMPHOCYTES # (AUTO) 1.9 X 10^3 (1.0-4.0); LYMPHOCYTES % (AUTO) 24 % (12-44); MEAN CORPUSCULAR HEMOGLOBIN 27 PG (25-34); MEAN CORPUSCULAR HGB CONC 34 G/DL (32-36); MEAN CORPUSCULAR VOLUME 81 FL (80-99); MEAN PLATELET VOLUME 9.8 FL (7.4-10.4); MONOCYTES # (AUTO) 0.9 X 10^3 (0.0-1.0); MONOCYTES % (AUTO) 10 % (0-12); NEUTROPHILS # (AUTO) 5.2 X 10^3 (1.8-7.8); NEUTROPHILS % (AUTO) 63 % (42-75); PLATELET COUNT 291 10^3/uL (130-400); RED BLOOD COUNT 4.98 10^6/uL (4.35-5.85); WHITE BLOOD COUNT 8.3 10^3/uL (4.3-11.0)
[2017-09-16 06:15] LABS: BILIRUBIN,URINE NEGATIVE (NEGATIVE); KETONES,URINE NEGATIVE (NEGATIVE); LEUKOCYTE ESTERASE ,URINE 1+ (NEGATIVE); NITRITE,URINE NEGATIVE (NEGATIVE); PH,URINE 6 (5-9); PROTEIN,URINE 1+ (NEGATIVE); UROBILINOGEN,URINE 1 MG/DL (NORMAL)
[2017-09-16] MEDS ORDERED: HYOSCYAMINE 0.125 MG (LEVSIN) TAB SL ONE (06:15)
[2017-09-16 06:17] LABS: WBC,URINE RARE /HPF
[2017-09-16 06:39] LABS: ALANINE AMINOTRANSFERASE 37 U/L (0-55); AMYLASE 34 U/L (25-125); ANION GAP 10 MMOL/L (5-14); ASPARTATE AMINO TRANSFERASE 15 U/L (5-34); BILIRUBIN,TOTAL 0.4 MG/DL (0.1-1.0); BLOOD UREA NITROGEN 11 MG/DL (7-18); BUN/CREATININE RATIO 14; CALCIUM 8.7 MG/DL (8.5-10.1); CARBON DIOXIDE 25 MMOL/L (21-32); CHLORIDE 105 MMOL/L (98-107); CREATININE SERUM 0.78 MG/DL (0.60-1.30); GFR ESTIMATED > 60; GLUCOSE 107 MG/DL (70-105); LIPASE 15 U/L (8-78); POTASSIUM 3.2 MMOL/L (3.6-5.0); SODIUM 140 MMOL/L (135-145)
[2017-09-16] MEDS ORDERED: ONDA4TAB8 SL (06:54)
[2017-09-16] MEDS ORDERED: HYOS0.1283 SL (06:54)
[2017-09-16] MEDS ORDERED: KCL 10 MEQ TAB (MICRO K) PO ONE (07:00)
[2017-09-16 07:03] VITALS: BP 121/80
== END 2017-09-16 07:03 | disposition home or self-care (01) ==
LOC: EDUNIT# 05:16 → ER 05:20
DX: E87.6 Hypokalemia (principal); R10.84 Generalized abdominal pain; R11.2 Nausea with vomiting, unspecified; R19.7 Diarrhea, unspecified; F41.9 Anxiety disorder, unspecified; F32.9 Major depressive disorder, single episode, unspecified; F43.10 Post-traumatic stress disorder, unspecified; I10 Essential (primary) hypertension; E66.01 Morbid (severe) obesity due to excess calories; Z68.43 Body mass index [BMI] 50.0-59.9, adult; Z90.49 Acquired absence of other specified parts of digestive tract; Z87.828 Personal history of other (healed) physical injury and trauma
CPT/HCPCS: 36415; 80053; 81000; 82150; 83690; 84703; 85025; 87045; 87046; 87077; 87088; 87186; 87324; 87328; 87329; 87449